=== PATIENT | male | born 1965 | race Caucasian/White ===

== ENCOUNTER 2016-03-18 16:02 | Outpatient (CLI) ==
[2015-10-14 20:15] VITALS: BMI 48.2
[2016-03-18 16:35] LABS: BASOPHILS % (AUTO) 0.5 % (0.0-3.0); EOSINOPHILS # (AUTO) 0.1 K/ul (0.0-0.7); EOSINOPHILS % (AUTO) 3.4 % (0.0-7.0); IMMATURE GRANULOCYTE % (AUTO) 0.5 % (0.0-5.0); LYMPHOCYTES # (AUTO) 0.6 K/uL (0.60-3.4); LYMPHOCYTES % (AUTO) 16.3 (10.0-50.0); MEAN CORPUSCULAR HEMOGLOBIN 33.5 pg (27.0-31.0); MEAN CORPUSCULAR HGB CONC 32.2 (31.8-35.4); MEAN CORPUSCULAR VOLUME 104.1 fl (80.0-94.0); MONOCYTES # (AUTO) 0.5 K/uL (0.4-2.0); MONOCYTES % (AUTO) 12.2 (0-10); NEUTROPHILS # (AUTO) 2.6 K/ul (2.0-6.9); NEUTROPHILS % (AUTO) 67.1; PLATELET COUNT 77 10^3/uL (140-440); WHITE BLOOD COUNT 3.86 K/ul (4.2-10.2)
[2016-03-18 16:39] LABS: HEMATOCRIT 17.7 % (42.0-52.0); HEMOGLOBIN 5.7 g/dl (14.0-18.0)
[2016-03-18 16:42] LABS: ALBUMIN 3.1 g/dL (3.4-5.0); ALBUMIN/GLOBULIN RATIO 0.74; ANION GAP 11.4; BILIRUBIN,TOTAL 2.29 mg/dL (0.00-1.20); BUN/CREATININE RATIO 9.34; CALCIUM 8.7 mg/dL (8.2-10.2); CREATININE 3.21 mg/dL (0.60-1.10); POTASSIUM 3.4 mmol/L (3.5-5.1); TOTAL PROTEIN 7.3 g/dL (6.4-8.2)
== END 2016-03-18 16:03 | disposition home or self-care (01) ==
LOC: LAB 16:02
PROVIDERS: ATTEND Internal Medicine
DX: D64.9 Anemia, unspecified (principal); N17.9 Acute kidney failure, unspecified
CPT/HCPCS: 36415; 80053; 85025

== ENCOUNTER 2016-03-28 14:52 | Outpatient (CLI) ==
[2015-10-14 20:15] VITALS: BMI 48.2
[2016-03-28 15:12] LABS: BASOPHILS % (AUTO) 0.3 % (0.0-3.0); EOSINOPHILS # (AUTO) 0.1 K/ul (0.0-0.7); EOSINOPHILS % (AUTO) 2.3 % (0.0-7.0); HEMOGLOBIN 7.4 g/dl (14.0-18.0); IMMATURE GRANULOCYTE % (AUTO) 0.5 % (0.0-5.0); IMMATURE RETIC FRACTION 18.3; LYMPHOCYTES % (AUTO) 17.1 (10.0-50.0); MEAN CORPUSCULAR HGB CONC 30.8 (31.8-35.4); MEAN CORPUSCULAR VOLUME 103.9 fl (80.0-94.0); MONOCYTES # (AUTO) 0.4 K/uL (0.4-2.0); MONOCYTES % (AUTO) 7.2 (0-10); NEUTROPHILS # (AUTO) 4.2 K/ul (2.0-6.9); NEUTROPHILS % (AUTO) 72.6; PLATELET COUNT 79 10^3/uL (140-440); RED BLOOD COUNT 2.31 10^6/ul (4.70-6.10); RETICULOCYTE % 5.26 %; WHITE BLOOD COUNT 5.73 K/ul (4.2-10.2)
[2016-03-28 16:22] LABS: FERRITIN 119.69 ng/mL (21.81-274.66); FOLATE 6.9 ng/mL (3.1-20.5)
== END 2016-03-28 14:53 | disposition home or self-care (01) ==
LOC: LAB 14:52
PROVIDERS: ATTEND Emergency Medicine
DX: N18.9 Chronic kidney disease, unspecified (principal); D63.1 Anemia in chronic kidney disease
CPT/HCPCS: 36415; 82607; 82728; 82746; 83540; 83550; 84466; 85025; 85045

== ENCOUNTER 2016-04-07 12:42 | Outpatient (CLI) ==
[2015-10-14 20:15] VITALS: BMI 48.2
[2016-04-07 13:08] LABS: BASOPHILS % (AUTO) 0.5 % (0.0-3.0); EOSINOPHILS # (AUTO) 0.2 K/ul (0.0-0.7); HEMOGLOBIN 7.7 g/dl (14.0-18.0); IMMATURE GRANULOCYTE % (AUTO) 0.2 % (0.0-5.0); LYMPHOCYTES # (AUTO) 1.3 K/uL (0.60-3.4); LYMPHOCYTES % (AUTO) 23.1 (10.0-50.0); MEAN CORPUSCULAR HGB CONC 32.1 (31.8-35.4); MONOCYTES # (AUTO) 0.4 K/uL (0.4-2.0); MONOCYTES % (AUTO) 6.4 (0-10); NEUTROPHILS # (AUTO) 3.8 K/ul (2.0-6.9); NEUTROPHILS % (AUTO) 66.8; PLATELET COUNT 72 10^3/uL (140-440); RED BLOOD COUNT 2.33 10^6/ul (4.70-6.10); WHITE BLOOD COUNT 5.66 K/ul (4.2-10.2)
[2016-04-07 13:36] LABS: ALBUMIN 3.1 g/dL (3.4-5.0); ALBUMIN/GLOBULIN RATIO 0.89; ANION GAP 10.4; BILIRUBIN,TOTAL 2.2 mg/dL (0.00-1.20); BUN/CREATININE RATIO 19.62; CREATININE 1.07 mg/dL (0.60-1.10); POTASSIUM 3.4 mmol/L (3.5-5.1); TOTAL PROTEIN 6.6 g/dL (6.4-8.2)
== END 2016-04-07 12:43 | disposition home or self-care (01) ==
LOC: LAB 12:42
PROVIDERS: ATTEND Emergency Medicine
DX: D64.9 Anemia, unspecified (principal); N19 Unspecified kidney failure
CPT/HCPCS: 36415; 80053; 85025

== ENCOUNTER 2016-04-08 15:08 | Outpatient (CLI) ==
[2015-10-14 20:15] VITALS: BMI 48.2
[2016-04-08 15:39] LABS: ANION GAP 11.4; BUN/CREATININE RATIO 18.58; CALCIUM 8.9 mg/dL (8.2-10.2); CREATININE 1.13 mg/dL (0.60-1.10); POTASSIUM 3.4 mmol/L (3.5-5.1)
== END 2016-04-08 15:09 | disposition home or self-care (01) ==
LOC: LAB 15:08
PROVIDERS: ATTEND Internal Medicine Nephrology
DX: N18.4 Chronic kidney disease, stage 4 (severe) (principal)
CPT/HCPCS: 36415; 80048

== ENCOUNTER 2016-04-10 15:41 | Outpatient (CLI) ==
[2015-10-14 20:15] VITALS: BMI 48.2
[2016-04-12 08:18] LABS: REF CREATININE 1.14 mg/dL (0.76-1.27); URINE TOTAL PROTEIN 24 HR 6.7 mg/dL (Not Estab.)
[2016-04-12 08:27] LABS: 24 HR PROTEIN CALCULATED 160.8 mg/24 hr (30.0-150.0)
== END 2016-04-10 15:42 | disposition home or self-care (01) ==
LOC: LAB 15:41
PROVIDERS: ATTEND Internal Medicine Nephrology
DX: N18.4 Chronic kidney disease, stage 4 (severe) (principal)
CPT/HCPCS: 81050; 82575; 84156

== ENCOUNTER 2016-05-01 12:20 | Outpatient (CLI) ==
[2015-10-14 20:15] VITALS: BMI 48.2
[2016-05-01 12:55] LABS: BASOPHILS % (AUTO) 0.3 % (0.0-3.0); EOSINOPHILS # (AUTO) 0.1 K/ul (0.0-0.7); EOSINOPHILS % (AUTO) 2.6 % (0.0-7.0); HEMOGLOBIN 6.4 g/dl (14.0-18.0); LYMPHOCYTES # (AUTO) 0.8 K/uL (0.60-3.4); LYMPHOCYTES % (AUTO) 26.5 (10.0-50.0); MEAN CORPUSCULAR HEMOGLOBIN 29.6 pg (27.0-31.0); MEAN CORPUSCULAR HGB CONC 31.4 (31.8-35.4); MEAN CORPUSCULAR VOLUME 94.4 fl (80.0-94.0); MONOCYTES # (AUTO) 0.2 K/uL (0.4-2.0); MONOCYTES % (AUTO) 7.6 (0-10); NEUTROPHILS # (AUTO) 1.9 K/ul (2.0-6.9); PLATELET COUNT 83 10^3/uL (140-440); RED BLOOD COUNT 2.16 10^6/ul (4.70-6.10); WHITE BLOOD COUNT 3.02 K/ul (4.2-10.2)
[2016-05-01 13:05] LABS: ANION GAP 8.7; BILIRUBIN,TOTAL 1.51 mg/dL (0.00-1.20); BUN/CREATININE RATIO 9.09; CALCIUM 8.3 mg/dL (8.2-10.2); CREATININE 0.88 mg/dL (0.60-1.10); POTASSIUM 3.7 mmol/L (3.5-5.1)
[2016-05-01 13:11] LABS: HEMATOCRIT 20.4 % (42.0-52.0)
== END 2016-05-01 12:21 | disposition home or self-care (01) ==
LOC: LAB 12:20
PROVIDERS: ATTEND Emergency Medicine
DX: D64.9 Anemia, unspecified (principal); K74.60 Unspecified cirrhosis of liver; R60.0 Localized edema; E66.9 Obesity, unspecified
CPT/HCPCS: 36415; 80053; 85025

== ENCOUNTER 2016-05-07 14:09 | Outpatient (CLI) ==
[2015-10-14 20:15] VITALS: BMI 48.2
[2016-05-07 14:42] LABS: BASOPHILS % (AUTO) 0.5 % (0.0-3.0); EOSINOPHILS # (AUTO) 0.1 K/ul (0.0-0.7); EOSINOPHILS % (AUTO) 2.7 % (0.0-7.0); HEMATOCRIT 24.7 % (42.0-52.0); HEMOGLOBIN 7.7 g/dl (14.0-18.0); IMMATURE GRANULOCYTE % (AUTO) 0.3 % (0.0-5.0); LYMPHOCYTES # (AUTO) 0.9 K/uL (0.60-3.4); LYMPHOCYTES % (AUTO) 23.9 (10.0-50.0); MEAN CORPUSCULAR HEMOGLOBIN 28.4 pg (27.0-31.0); MEAN CORPUSCULAR HGB CONC 31.2 (31.8-35.4); MEAN CORPUSCULAR VOLUME 91.1 fl (80.0-94.0); MONOCYTES # (AUTO) 0.4 K/uL (0.4-2.0); MONOCYTES % (AUTO) 10.5 (0-10); NEUTROPHILS # (AUTO) 2.3 K/ul (2.0-6.9); NEUTROPHILS % (AUTO) 62.1; PLATELET COUNT 102 10^3/uL (140-440); RED BLOOD COUNT 2.71 10^6/ul (4.70-6.10); WHITE BLOOD COUNT 3.73 K/ul (4.2-10.2)
[2016-05-07 14:58] LABS: ALBUMIN 3.2 g/dL (3.4-5.0); ALBUMIN/GLOBULIN RATIO 1.03; ANION GAP 8.1; BILIRUBIN,TOTAL 2.59 mg/dL (0.00-1.20); BUN/CREATININE RATIO 8.51; CALCIUM 8.9 mg/dL (8.2-10.2); CREATININE 0.94 mg/dL (0.60-1.10); POTASSIUM 3.1 mmol/L (3.5-5.1); TOTAL PROTEIN 6.3 g/dL (6.4-8.2)
== END 2016-05-07 14:10 | disposition home or self-care (01) ==
LOC: LAB 14:09
PROVIDERS: ATTEND Emergency Medicine
DX: D64.9 Anemia, unspecified (principal); K74.60 Unspecified cirrhosis of liver
CPT/HCPCS: 36415; 80053; 85025

== ENCOUNTER 2016-05-16 15:04 | Outpatient (CLI) ==
[2015-10-14 20:15] VITALS: BMI 48.2
[2016-05-16 15:26] LABS: BASOPHILS % (AUTO) 0.6 % (0.0-3.0); EOSINOPHILS # (AUTO) 0.2 K/ul (0.0-0.7); EOSINOPHILS % (AUTO) 4.7 % (0.0-7.0); HEMATOCRIT 27.1 % (42.0-52.0); HEMOGLOBIN 8.3 g/dl (14.0-18.0); LYMPHOCYTES # (AUTO) 0.9 K/uL (0.60-3.4); LYMPHOCYTES % (AUTO) 26.1 (10.0-50.0); MEAN CORPUSCULAR HEMOGLOBIN 27.4 pg (27.0-31.0); MEAN CORPUSCULAR HGB CONC 30.6 (31.8-35.4); MEAN CORPUSCULAR VOLUME 89.4 fl (80.0-94.0); MONOCYTES # (AUTO) 0.3 K/uL (0.4-2.0); MONOCYTES % (AUTO) 10.1 (0-10); NEUTROPHILS % (AUTO) 58.5; PLATELET COUNT 102 10^3/uL (140-440); RED BLOOD COUNT 3.03 10^6/ul (4.70-6.10); WHITE BLOOD COUNT 3.37 K/ul (4.2-10.2)
[2016-05-16 15:56] LABS: ALBUMIN 3.1 g/dL (3.4-5.0); ANION GAP 10.4; BILIRUBIN,TOTAL 2.49 mg/dL (0.00-1.20); BUN/CREATININE RATIO 8.04; CALCIUM 8.7 mg/dL (8.2-10.2); CREATININE 0.87 mg/dL (0.60-1.10); POTASSIUM 3.4 mmol/L (3.5-5.1); TOTAL PROTEIN 6.2 g/dL (6.4-8.2)
== END 2016-05-16 15:05 | disposition home or self-care (01) ==
LOC: LAB 15:04
PROVIDERS: ATTEND Emergency Medicine
DX: R60.0 Localized edema (principal); D64.9 Anemia, unspecified; E66.9 Obesity, unspecified; R17 Unspecified jaundice; K74.60 Unspecified cirrhosis of liver
CPT/HCPCS: 36415; 80053; 85025

== ENCOUNTER 2016-05-22 15:01 | Outpatient (CLI) ==
[2015-10-14 20:15] VITALS: BMI 48.2
[2016-05-22 15:26] LABS: BASOPHILS % (AUTO) 0.6 % (0.0-3.0); EOSINOPHILS # (AUTO) 0.2 K/ul (0.0-0.7); EOSINOPHILS % (AUTO) 4.7 % (0.0-7.0); HEMATOCRIT 25.8 % (42.0-52.0); IMMATURE GRANULOCYTE % (AUTO) 0.3 % (0.0-5.0); LYMPHOCYTES # (AUTO) 0.8 K/uL (0.60-3.4); LYMPHOCYTES % (AUTO) 24.1 (10.0-50.0); MEAN CORPUSCULAR HEMOGLOBIN 26.6 pg (27.0-31.0); MEAN CORPUSCULAR VOLUME 85.7 fl (80.0-94.0); MONOCYTES # (AUTO) 0.3 K/uL (0.4-2.0); MONOCYTES % (AUTO) 7.8 (0-10); NEUTROPHILS % (AUTO) 62.5; PLATELET COUNT 107 10^3/uL (140-440); RED BLOOD COUNT 3.01 10^6/ul (4.70-6.10)
[2016-05-22 15:50] LABS: ALBUMIN 3.1 g/dL (3.4-5.0); ALBUMIN/GLOBULIN RATIO 1.03; ANION GAP 7.2; BILIRUBIN,TOTAL 3.48 mg/dL (0.00-1.20); BUN/CREATININE RATIO 8.98; CALCIUM 8.7 mg/dL (8.2-10.2); CREATININE 0.89 mg/dL (0.60-1.10); POTASSIUM 3.2 mmol/L (3.5-5.1); TOTAL PROTEIN 6.1 g/dL (6.4-8.2)
== END 2016-05-22 15:02 | disposition home or self-care (01) ==
LOC: LAB 15:01
PROVIDERS: ATTEND Emergency Medicine
DX: K74.60 Unspecified cirrhosis of liver (principal); D64.9 Anemia, unspecified
CPT/HCPCS: 36415; 80053; 82140; 85025

== ENCOUNTER 2016-05-29 13:00 | Outpatient (CLI) ==
[2015-10-14 20:15] VITALS: BMI 48.2
[2016-05-29 13:34] LABS: BASOPHILS % (AUTO) 0.4 % (0.0-3.0); EOSINOPHILS # (AUTO) 0.2 K/ul (0.0-0.7); EOSINOPHILS % (AUTO) 6.5 % (0.0-7.0); HEMATOCRIT 22.3 % (42.0-52.0); HEMOGLOBIN 6.7 g/dl (14.0-18.0); LYMPHOCYTES # (AUTO) 0.8 K/uL (0.60-3.4); LYMPHOCYTES % (AUTO) 33.2 (10.0-50.0); MEAN CORPUSCULAR HEMOGLOBIN 25.9 pg (27.0-31.0); MEAN CORPUSCULAR VOLUME 86.1 fl (80.0-94.0); MONOCYTES # (AUTO) 0.2 K/uL (0.4-2.0); MONOCYTES % (AUTO) 9.7 (0-10); NEUTROPHILS # (AUTO) 1.2 K/ul (2.0-6.9); NEUTROPHILS % (AUTO) 50.2; PLATELET COUNT 83 10^3/uL (140-440); PROTHROMBIN TIME 12.3 SEC (9.3-11.0); RED BLOOD COUNT 2.59 10^6/ul (4.70-6.10); WHITE BLOOD COUNT 2.47 K/ul (4.2-10.2)
== END 2016-05-29 13:01 | disposition home or self-care (01) ==
LOC: LAB 13:00
PROVIDERS: ATTEND Emergency Medicine
DX: D64.9 Anemia, unspecified (principal); K74.60 Unspecified cirrhosis of liver
CPT/HCPCS: 36415; 82140; 85025; 85610

== ENCOUNTER 2016-05-29 14:39 | Outpatient (CLI) ==
[2015-10-14 20:15] VITALS: BMI 48.2
[2016-05-29] MEDS ORDERED: LASIX IVP STA (17:34)
[2016-05-30] MEDS ORDERED: LASIX ONE (00:29)
[2016-05-30 00:44] LABS: BASOPHILS % (AUTO) 0.7 % (0.0-3.0); EOSINOPHILS # (AUTO) 0.2 K/ul (0.0-0.7); EOSINOPHILS % (AUTO) 6.7 % (0.0-7.0); HEMATOCRIT 22.9 % (42.0-52.0); HEMOGLOBIN 7.2 g/dl (14.0-18.0); LYMPHOCYTES % (AUTO) 37.9 (10.0-50.0); MEAN CORPUSCULAR HEMOGLOBIN 26.8 pg (27.0-31.0); MEAN CORPUSCULAR HGB CONC 31.4 (31.8-35.4); MEAN CORPUSCULAR VOLUME 85.1 fl (80.0-94.0); MONOCYTES # (AUTO) 0.3 K/uL (0.4-2.0); NEUTROPHILS # (AUTO) 1.2 K/ul (2.0-6.9); NEUTROPHILS % (AUTO) 44.7; PLATELET COUNT 65 10^3/uL (140-440); RED BLOOD COUNT 2.69 10^6/ul (4.70-6.10); WHITE BLOOD COUNT 2.69 K/ul (4.2-10.2)
[2016-05-30 01:38] VITALS: BP 120/69; TEMP 98.8
== END 2016-05-30 00:40 | disposition home or self-care (01) ==
LOC: LAB 14:39 → OUTPT 14:40
PROVIDERS: ATTEND Emergency Medicine
DX: D64.9 Anemia, unspecified (principal); K74.60 Unspecified cirrhosis of liver
CPT/HCPCS: 36415; 36430; 82140; 85025; 85610; 86850; 86900; 86922; 96375

== ENCOUNTER 2016-06-09 13:25 | Outpatient (CLI) ==
[2015-10-14 20:15] VITALS: BMI 48.2
[2016-06-09 13:43] LABS: BASOPHILS % (AUTO) 0.3 % (0.0-3.0); EOSINOPHILS # (AUTO) 0.1 K/ul (0.0-0.7); EOSINOPHILS % (AUTO) 3.1 % (0.0-7.0); HEMATOCRIT 23.6 % (42.0-52.0); HEMOGLOBIN 7.1 g/dl (14.0-18.0); IMMATURE GRANULOCYTE % (AUTO) 0.5 % (0.0-5.0); LYMPHOCYTES # (AUTO) 0.8 K/uL (0.60-3.4); LYMPHOCYTES % (AUTO) 21.4 (10.0-50.0); MEAN CORPUSCULAR HEMOGLOBIN 25.9 pg (27.0-31.0); MEAN CORPUSCULAR HGB CONC 30.1 (31.8-35.4); MEAN CORPUSCULAR VOLUME 86.1 fl (80.0-94.0); MONOCYTES # (AUTO) 0.3 K/uL (0.4-2.0); MONOCYTES % (AUTO) 8.8 (0-10); NEUTROPHILS # (AUTO) 2.6 K/ul (2.0-6.9); NEUTROPHILS % (AUTO) 65.9; PLATELET COUNT 103 10^3/uL (140-440); RED BLOOD COUNT 2.74 10^6/ul (4.70-6.10); WHITE BLOOD COUNT 3.87 K/ul (4.2-10.2)
[2016-06-09 14:05] LABS: ALBUMIN 3.1 g/dL (3.4-5.0); ALBUMIN/GLOBULIN RATIO 1.07; ANION GAP 8.9; BUN/CREATININE RATIO 13.18; CALCIUM 8.5 mg/dL (8.2-10.2); CREATININE 0.91 mg/dL (0.60-1.10); POTASSIUM 3.9 mmol/L (3.5-5.1)
== END 2016-06-09 13:26 | disposition home or self-care (01) ==
LOC: LAB 13:25
PROVIDERS: ATTEND Emergency Medicine
DX: D64.9 Anemia, unspecified (principal); K74.60 Unspecified cirrhosis of liver; E72.20 Disorder of urea cycle metabolism, unspecified
CPT/HCPCS: 36415; 80053; 82140; 85025

== ENCOUNTER 2016-06-12 14:42 | Outpatient (CLI) ==
[2015-10-14 20:15] VITALS: BMI 48.2
[2016-06-12 15:21] LABS: BASOPHILS % (AUTO) 0.3 % (0.0-3.0); EOSINOPHILS # (AUTO) 0.1 K/ul (0.0-0.7); EOSINOPHILS % (AUTO) 4.1 % (0.0-7.0); HEMOGLOBIN 7.1 g/dl (14.0-18.0); IMMATURE GRANULOCYTE % (AUTO) 0.3 % (0.0-5.0); LYMPHOCYTES # (AUTO) 0.8 K/uL (0.60-3.4); LYMPHOCYTES % (AUTO) 24.3 (10.0-50.0); MEAN CORPUSCULAR HGB CONC 29.6 (31.8-35.4); MEAN CORPUSCULAR VOLUME 84.5 fl (80.0-94.0); MONOCYTES # (AUTO) 0.4 K/uL (0.4-2.0); MONOCYTES % (AUTO) 10.7 (0-10); NEUTROPHILS % (AUTO) 60.3; PLATELET COUNT 121 10^3/uL (140-440); RED BLOOD COUNT 2.84 10^6/ul (4.70-6.10); WHITE BLOOD COUNT 3.38 K/ul (4.2-10.2)
[2016-06-12 15:33] LABS: ALBUMIN 3.2 g/dL (3.4-5.0); ALBUMIN/GLOBULIN RATIO 1.07; ANION GAP 7.5; BILIRUBIN,TOTAL 2.53 mg/dL (0.00-1.20); BUN/CREATININE RATIO 11.23; CALCIUM 8.6 mg/dL (8.2-10.2); CREATININE 0.89 mg/dL (0.60-1.10); POTASSIUM 3.5 mmol/L (3.5-5.1); TOTAL PROTEIN 6.2 g/dL (6.4-8.2)
== END 2016-06-12 14:43 | disposition home or self-care (01) ==
LOC: LAB 14:42
PROVIDERS: ATTEND Emergency Medicine
DX: D64.9 Anemia, unspecified (principal); G93.40 Encephalopathy, unspecified
CPT/HCPCS: 36415; 80053; 82140; 85025

== ENCOUNTER 2016-06-18 12:09 | Outpatient (CLI) ==
[2015-10-14 20:15] VITALS: BMI 48.2
[2016-06-18 12:29] LABS: BASOPHILS % (AUTO) 0.4 % (0.0-3.0); EOSINOPHILS # (AUTO) 0.2 K/ul (0.0-0.7); EOSINOPHILS % (AUTO) 6.6 % (0.0-7.0); HEMATOCRIT 24.9 % (42.0-52.0); HEMOGLOBIN 7.3 g/dl (14.0-18.0); IMMATURE GRANULOCYTE % (AUTO) 0.4 % (0.0-5.0); LYMPHOCYTES % (AUTO) 35.2 (10.0-50.0); MEAN CORPUSCULAR HEMOGLOBIN 24.5 pg (27.0-31.0); MEAN CORPUSCULAR HGB CONC 29.3 (31.8-35.4); MEAN CORPUSCULAR VOLUME 83.6 fl (80.0-94.0); MONOCYTES # (AUTO) 0.3 K/uL (0.4-2.0); MONOCYTES % (AUTO) 9.5 (0-10); NEUTROPHILS # (AUTO) 1.3 K/ul (2.0-6.9); NEUTROPHILS % (AUTO) 47.9; PLATELET COUNT 96 10^3/uL (140-440); RED BLOOD COUNT 2.98 10^6/ul (4.70-6.10); WHITE BLOOD COUNT 2.73 K/ul (4.2-10.2)
== END 2016-06-18 12:10 | disposition home or self-care (01) ==
LOC: LAB 12:09
PROVIDERS: ATTEND Emergency Medicine
DX: D64.9 Anemia, unspecified (principal); K74.60 Unspecified cirrhosis of liver; G93.40 Encephalopathy, unspecified
CPT/HCPCS: 36415; 82140; 85025

== ENCOUNTER 2016-07-22 13:20 | Outpatient (CLI) ==
[2015-10-14 20:15] VITALS: BMI 48.2
[2016-07-22 13:42] LABS: BASOPHILS % (AUTO) 0.7 % (0.0-3.0); EOSINOPHILS # (AUTO) 0.1 K/ul (0.0-0.7); EOSINOPHILS % (AUTO) 4.5 % (0.0-7.0); HEMATOCRIT 27.6 % (42.0-52.0); HEMOGLOBIN 8.4 g/dl (14.0-18.0); IMMATURE GRANULOCYTE % (AUTO) 0.3 % (0.0-5.0); LYMPHOCYTES # (AUTO) 0.7 K/uL (0.60-3.4); LYMPHOCYTES % (AUTO) 25.8 (10.0-50.0); MEAN CORPUSCULAR HEMOGLOBIN 26.3 pg (27.0-31.0); MEAN CORPUSCULAR HGB CONC 30.4 (31.8-35.4); MEAN CORPUSCULAR VOLUME 86.3 fl (80.0-94.0); MONOCYTES # (AUTO) 0.3 K/uL (0.4-2.0); MONOCYTES % (AUTO) 9.1 (0-10); NEUTROPHILS # (AUTO) 1.7 K/ul (2.0-6.9); NEUTROPHILS % (AUTO) 59.6; PLATELET COUNT 95 10^3/uL (140-440); WHITE BLOOD COUNT 2.87 K/ul (4.2-10.2)
[2016-07-22 14:04] LABS: ALBUMIN/GLOBULIN RATIO 1.03; ANION GAP 9.4; BILIRUBIN,TOTAL 2.47 mg/dL (0.00-1.20); BUN/CREATININE RATIO 10.67; CALCIUM 8.3 mg/dL (8.2-10.2); CREATININE 1.03 mg/dL (0.60-1.10); POTASSIUM 3.4 mmol/L (3.5-5.1); TOTAL PROTEIN 5.9 g/dL (6.4-8.2)
== END 2016-07-22 13:21 | disposition home or self-care (01) ==
LOC: LAB 13:20
PROVIDERS: ATTEND Emergency Medicine
DX: D64.9 Anemia, unspecified (principal); K74.60 Unspecified cirrhosis of liver; G93.40 Encephalopathy, unspecified
CPT/HCPCS: 36415; 80053; 82140; 85025

== ENCOUNTER 2016-08-01 10:41 | Outpatient (CLI) ==
[2015-10-14 20:15] VITALS: BMI 48.2
[2016-08-01 11:01] LABS: BASOPHILS % (AUTO) 0.6 % (0.0-3.0); EOSINOPHILS # (AUTO) 0.2 K/ul (0.0-0.7); EOSINOPHILS % (AUTO) 5.4 % (0.0-7.0); HEMATOCRIT 33.4 % (42.0-52.0); LYMPHOCYTES % (AUTO) 28.6 (10.0-50.0); MEAN CORPUSCULAR HEMOGLOBIN 26.2 pg (27.0-31.0); MEAN CORPUSCULAR HGB CONC 29.9 (31.8-35.4); MEAN CORPUSCULAR VOLUME 87.4 fl (80.0-94.0); MONOCYTES # (AUTO) 0.3 K/uL (0.4-2.0); MONOCYTES % (AUTO) 10.1 (0-10); NEUTROPHILS # (AUTO) 1.9 K/ul (2.0-6.9); NEUTROPHILS % (AUTO) 55.3; PLATELET COUNT 129 10^3/uL (140-440); RED BLOOD COUNT 3.82 10^6/ul (4.70-6.10); WHITE BLOOD COUNT 3.36 K/ul (4.2-10.2)
[2016-08-01 11:07] LABS: ANISOCYTOSIS 2+ (NOT PRESENT)
[2016-08-01 11:18] LABS: ALBUMIN 3.4 g/dL (3.4-5.0); ALBUMIN/GLOBULIN RATIO 1.06; BILIRUBIN,TOTAL 2.43 mg/dL (0.00-1.20); BUN/CREATININE RATIO 13.68; CALCIUM 8.9 mg/dL (8.2-10.2); CREATININE 0.95 mg/dL (0.60-1.10); TOTAL PROTEIN 6.6 g/dL (6.4-8.2)
== END 2016-08-01 10:42 | disposition home or self-care (01) ==
LOC: LAB 10:41
PROVIDERS: ATTEND Emergency Medicine
DX: D64.9 Anemia, unspecified (principal); K74.60 Unspecified cirrhosis of liver; G93.40 Encephalopathy, unspecified
CPT/HCPCS: 36415; 80053; 82140; 85008; 85025

== ENCOUNTER 2016-08-14 15:35 | Outpatient (CLI) ==
[2015-10-14 20:15] VITALS: BMI 48.2
[2016-08-14 16:17] LABS: BASOPHILS % (AUTO) 0.7 % (0.0-3.0); EOSINOPHILS # (AUTO) 0.1 K/ul (0.0-0.7); EOSINOPHILS % (AUTO) 3.7 % (0.0-7.0); HEMATOCRIT 32.7 % (42.0-52.0); LYMPHOCYTES # (AUTO) 0.8 K/uL (0.60-3.4); MEAN CORPUSCULAR HEMOGLOBIN 27.4 pg (27.0-31.0); MEAN CORPUSCULAR HGB CONC 30.6 (31.8-35.4); MEAN CORPUSCULAR VOLUME 89.6 fl (80.0-94.0); MONOCYTES # (AUTO) 0.2 K/uL (0.4-2.0); MONOCYTES % (AUTO) 6.8 (0-10); NEUTROPHILS # (AUTO) 1.9 K/ul (2.0-6.9); NEUTROPHILS % (AUTO) 62.8; PLATELET COUNT 107 10^3/uL (140-440); RED BLOOD COUNT 3.65 10^6/ul (4.70-6.10); WHITE BLOOD COUNT 2.96 K/ul (4.2-10.2)
[2016-08-14 16:21] LABS: ALBUMIN 3.2 g/dL (3.4-5.0); ALBUMIN/GLOBULIN RATIO 1.14; ANION GAP 8.5; BILIRUBIN,TOTAL 2.06 mg/dL (0.00-1.20); BUN/CREATININE RATIO 12.03; CALCIUM 8.8 mg/dL (8.2-10.2); CREATININE 1.08 mg/dL (0.60-1.10); POTASSIUM 3.5 mmol/L (3.5-5.1)
== END 2016-08-14 15:36 | disposition home or self-care (01) ==
LOC: LAB 15:35
PROVIDERS: ATTEND Emergency Medicine
DX: D64.9 Anemia, unspecified (principal); K74.60 Unspecified cirrhosis of liver; G93.40 Encephalopathy, unspecified
CPT/HCPCS: 36415; 80053; 82140; 85025

== ENCOUNTER 2016-09-12 09:22 | Outpatient (CLI) ==
[2015-10-14 20:15] VITALS: BMI 48.2
[2016-09-12 09:54] LABS: BASOPHILS % (AUTO) 0.4 % (0.0-3.0); EOSINOPHILS # (AUTO) 0.1 K/ul (0.0-0.7); EOSINOPHILS % (AUTO) 5.4 % (0.0-7.0); HEMATOCRIT 30.1 % (42.0-52.0); HEMOGLOBIN 9.3 g/dl (14.0-18.0); IMMATURE GRANULOCYTE % (AUTO) 0.4 % (0.0-5.0); LYMPHOCYTES # (AUTO) 0.8 K/uL (0.60-3.4); LYMPHOCYTES % (AUTO) 30.7 (10.0-50.0); MEAN CORPUSCULAR HGB CONC 30.9 (31.8-35.4); MEAN CORPUSCULAR VOLUME 93.8 fl (80.0-94.0); MONOCYTES # (AUTO) 0.3 K/uL (0.4-2.0); MONOCYTES % (AUTO) 10.5 (0-10); NEUTROPHILS # (AUTO) 1.4 K/ul (2.0-6.9); NEUTROPHILS % (AUTO) 52.6; PLATELET COUNT 70 10^3/uL (140-440); RED BLOOD COUNT 3.21 10^6/ul (4.70-6.10); WHITE BLOOD COUNT 2.57 K/ul (4.2-10.2)
[2016-09-12 10:11] LABS: PROTHROMBIN TIME 11.8 SEC (9.3-11.0)
[2016-09-12 10:13] LABS: ALBUMIN/GLOBULIN RATIO 1.15; ANION GAP 9.8; BILIRUBIN,TOTAL 1.96 mg/dL (0.00-1.20); BUN/CREATININE RATIO 14.81; CALCIUM 8.4 mg/dL (8.2-10.2); CREATININE 0.81 mg/dL (0.60-1.10); POTASSIUM 3.8 mmol/L (3.5-5.1); TOTAL PROTEIN 5.6 g/dL (6.4-8.2)
== END 2016-09-12 09:23 | disposition home or self-care (01) ==
LOC: LAB 09:22
PROVIDERS: ATTEND Emergency Medicine
DX: D64.9 Anemia, unspecified (principal); K74.60 Unspecified cirrhosis of liver
CPT/HCPCS: 36415; 80053; 82140; 85025; 85610

== ENCOUNTER 2016-09-19 14:23 | Outpatient (CLI) ==
[2015-10-14 20:15] VITALS: BMI 48.2
[2016-09-19 14:34] LABS: BASOPHILS % (AUTO) 0.8 % (0.0-3.0); EOSINOPHILS # (AUTO) 0.1 K/ul (0.0-0.7); EOSINOPHILS % (AUTO) 4.4 % (0.0-7.0); HEMATOCRIT 30.6 % (42.0-52.0); HEMOGLOBIN 9.6 g/dl (14.0-18.0); LYMPHOCYTES # (AUTO) 0.8 K/uL (0.60-3.4); LYMPHOCYTES % (AUTO) 33.1 (10.0-50.0); MEAN CORPUSCULAR HEMOGLOBIN 29.3 pg (27.0-31.0); MEAN CORPUSCULAR HGB CONC 31.4 (31.8-35.4); MEAN CORPUSCULAR VOLUME 93.3 fl (80.0-94.0); MONOCYTES # (AUTO) 0.3 K/uL (0.4-2.0); MONOCYTES % (AUTO) 12.1 (0-10); NEUTROPHILS # (AUTO) 1.2 K/ul (2.0-6.9); NEUTROPHILS % (AUTO) 49.6; PLATELET COUNT 86 10^3/uL (140-440); RED BLOOD COUNT 3.28 10^6/ul (4.70-6.10); WHITE BLOOD COUNT 2.48 K/ul (4.2-10.2)
[2016-09-19 15:30] LABS: ALBUMIN 2.9 g/dL (3.4-5.0); ALBUMIN/GLOBULIN RATIO 1.12; ANION GAP 9.7; BILIRUBIN,TOTAL 2.05 mg/dL (0.00-1.20); BUN/CREATININE RATIO 11.76; CALCIUM 8.3 mg/dL (8.2-10.2); CREATININE 1.02 mg/dL (0.60-1.10); POTASSIUM 3.7 mmol/L (3.5-5.1); TOTAL PROTEIN 5.5 g/dL (6.4-8.2)
== END 2016-09-19 14:24 | disposition home or self-care (01) ==
LOC: LAB 14:23
PROVIDERS: ATTEND Emergency Medicine
DX: G93.40 Encephalopathy, unspecified (principal); D50.0 Iron deficiency anemia secondary to blood loss (chronic); K74.69 Other cirrhosis of liver
CPT/HCPCS: 36415; 80053; 82140; 85025

== ENCOUNTER 2016-12-17 16:19 | Outpatient (CLI) ==
[2015-10-14 20:15] VITALS: BMI 48.2
[2016-12-17 16:45] LABS: BASOPHILS % (AUTO) 0.5 % (0.0-3.0); EOSINOPHILS # (AUTO) 0.1 K/ul (0.0-0.7); EOSINOPHILS % (AUTO) 3.6 % (0.0-7.0); HEMATOCRIT 37.6 % (42.0-52.0); IMMATURE GRANULOCYTE % (AUTO) 0.3 % (0.0-5.0); LYMPHOCYTES # (AUTO) 0.9 K/uL (0.60-3.4); LYMPHOCYTES % (AUTO) 23.3 (10.0-50.0); MEAN CORPUSCULAR HEMOGLOBIN 31.9 pg (27.0-31.0); MEAN CORPUSCULAR HGB CONC 34.6 (31.8-35.4); MEAN CORPUSCULAR VOLUME 92.4 fl (80.0-94.0); MONOCYTES # (AUTO) 0.4 K/uL (0.4-2.0); MONOCYTES % (AUTO) 9.3 (0-10); NEUTROPHILS # (AUTO) 2.4 K/ul (2.0-6.9); PLATELET COUNT 78 10^3/uL (140-440); RED BLOOD COUNT 4.07 10^6/ul (4.70-6.10); WHITE BLOOD COUNT 3.86 K/ul (4.2-10.2)
[2016-12-17 17:08] LABS: ANION GAP 9.3; BILIRUBIN,TOTAL 2.89 mg/dL (0.00-1.20); BUN/CREATININE RATIO 12.37; CALCIUM 9.1 mg/dL (8.2-10.2); CREATININE 0.97 mg/dL (0.60-1.10); POTASSIUM 4.3 mmol/L (3.5-5.1)
== END 2016-12-17 16:20 | disposition home or self-care (01) ==
LOC: LAB 16:19
PROVIDERS: ATTEND Emergency Medicine
DX: G93.40 Encephalopathy, unspecified (principal); D50.0 Iron deficiency anemia secondary to blood loss (chronic); I10 Essential (primary) hypertension; K74.69 Other cirrhosis of liver
CPT/HCPCS: 36415; 80053; 82140; 85025; 85610

== ENCOUNTER 2017-02-03 10:38 | Outpatient (CLI) ==
[2015-10-14 20:15] VITALS: BMI 48.2
[2017-02-03 11:14] LABS: EOSINOPHILS # (AUTO) 0.4 K/ul (0.0-0.7); HEMATOCRIT 38.1 % (42.0-52.0); HEMOGLOBIN 13.3 g/dl (14.0-18.0); LYMPHOCYTES % (AUTO) 33.6 (10.0-50.0); MEAN CORPUSCULAR HEMOGLOBIN 33.3 pg (27.0-31.0); MEAN CORPUSCULAR HGB CONC 34.9 (31.8-35.4); MEAN CORPUSCULAR VOLUME 95.3 fl (80.0-94.0); MONOCYTES # (AUTO) 0.3 K/uL (0.4-2.0); MONOCYTES % (AUTO) 9.9 (0-10); NEUTROPHILS # (AUTO) 1.2 K/ul (2.0-6.9); NEUTROPHILS % (AUTO) 42.5; PLATELET COUNT 76 10^3/uL (140-440); WHITE BLOOD COUNT 2.92 K/ul (4.2-10.2)
[2017-02-03 11:22] LABS: PROTHROMBIN TIME 11.9 SEC (9.3-11.0)
[2017-02-03 11:53] LABS: ALBUMIN 3.1 g/dL (3.4-5.0); ANION GAP 8.6; BILIRUBIN,DIRECT 0.85 mg/dL (0.00-0.30); BILIRUBIN,TOTAL 2.22 mg/dL (0.00-1.20); BUN/CREATININE RATIO 14.81; CALCIUM 8.9 mg/dL (8.2-10.2); CREATININE 0.81 mg/dL (0.60-1.10); POTASSIUM 3.6 mmol/L (3.5-5.1); TOTAL PROTEIN 5.9 g/dL (6.4-8.2)
== END 2017-02-03 10:39 | disposition home or self-care (01) ==
LOC: LAB 10:38
PROVIDERS: ATTEND Nurse Practitioner
DX: K74.60 Unspecified cirrhosis of liver (principal)
CPT/HCPCS: 36415; 80048; 80076; 82105; 82140; 84443; 85025; 85610

== ENCOUNTER 2017-03-18 14:38 | Outpatient (CLI) ==
[2015-10-14 20:15] VITALS: BMI 48.2
== END 2017-03-18 14:39 | disposition home or self-care (01) ==
LOC: LAB 14:38
PROVIDERS: ATTEND Nurse Practitioner
DX: K74.60 Unspecified cirrhosis of liver (principal)
CPT/HCPCS: 36415; 80048; 80076; 82105; 82140; 84443; 85025; 85610

== ENCOUNTER 2017-03-19 10:21 | Outpatient (CLI) ==
[2015-10-14 20:15] VITALS: BMI 48.2
--- NOTE | 2017-03-19 11:34 | US ---
EXAM: Ultrasound abdomen limited right upper quadrant HISTORY: Cirrhosis COMPARISON: 09/21/2015 TECHNIQUE: Limited ultrasound abdomen right upper quadrant was performed FINDINGS: Pancreas poorly visualized secondary bowel gas shadowing. Liver coarsening and echogenici ty and nodular in contour, consistent with cirrhotic duration. Portions of the liver obscured second rachele to shadowing artifact. Gallstone in the region of the gallbladder neck. Probable gallbladder wal l thickening. No pericholecystic fluid. Technologist reports there is no sonographic Borjas's sign. No pericholecystic fluid. No biliary duct dilation with common bile duct measuring 0.6 cm, with dis segundo common bile duct obscured. Main portal vein patent with normal direction of flow. IMPRESSION: 1. Cirrhotic configuration of the liver. 2. Cholelithiasis with a gallstone in the region of the gallbladder neck. Probable gallbladder wall thickening is nonspecific. Technologist reports there is no sonographic Borjas's sign.
== END 2017-03-19 10:22 | disposition home or self-care (01) ==
LOC: RAD 10:21
PROVIDERS: ATTEND Nurse Practitioner
DX: K75.81 Nonalcoholic steatohepatitis (NASH) (principal); K74.60 Unspecified cirrhosis of liver

== ENCOUNTER 2017-04-13 14:43 | Outpatient (CLI) ==
[2015-10-14 20:15] VITALS: BMI 48.2
== END 2017-04-13 14:44 | disposition home or self-care (01) ==
LOC: LAB 14:43
PROVIDERS: ATTEND Emergency Medicine
DX: D50.0 Iron deficiency anemia secondary to blood loss (chronic) (principal); K74.69 Other cirrhosis of liver; G93.40 Encephalopathy, unspecified
CPT/HCPCS: 36415; 80053; 82140; 85025; 85610

== ENCOUNTER 2017-05-27 13:55 | Outpatient (CLI) ==
[2015-10-14 20:15] VITALS: BMI 48.2
== END 2017-05-27 13:56 | disposition home or self-care (01) ==
LOC: LAB 13:55
PROVIDERS: ATTEND Emergency Medicine
DX: G93.40 Encephalopathy, unspecified (principal); R60.9 Edema, unspecified; K74.69 Other cirrhosis of liver; D50.0 Iron deficiency anemia secondary to blood loss (chronic)
CPT/HCPCS: 36415; 80053; 82140; 85025; 85610

== ENCOUNTER 2017-07-09 15:36 | Outpatient (CLI) | payer BC, OTHER ==
[2015-10-14 20:15] VITALS: BMI 48.2
== END 2017-07-09 15:37 | disposition home or self-care (01) ==
LOC: LAB 15:36
PROVIDERS: ATTEND Nurse Practitioner
DX: K75.81 Nonalcoholic steatohepatitis (NASH) (principal); K74.60 Unspecified cirrhosis of liver; K80.64 Calculus of gallbladder and bile duct with chronic cholecystitis without obstruction
CPT/HCPCS: 36415; 80048; 80076; 82140; 84443; 85025; 85610

== ENCOUNTER 2017-08-13 13:07 | Outpatient (CLI) ==
[2015-10-14 20:15] VITALS: BMI 48.2
== END 2017-08-13 13:08 | disposition home or self-care (01) ==
LOC: LAB 13:07
PROVIDERS: ATTEND Emergency Medicine
DX: K62.5 Hemorrhage of anus and rectum (principal); K31.819 Angiodysplasia of stomach and duodenum without bleeding
CPT/HCPCS: 36415; 80048; 80076; 82728; 85027; 85610

== ENCOUNTER 2017-08-20 16:39 | Outpatient (CLI) | payer BC, OTHER ==
[2015-10-14 20:15] VITALS: BMI 48.2
== END 2017-08-20 16:40 | disposition home or self-care (01) ==
LOC: LAB 16:39
PROVIDERS: ATTEND Nurse Practitioner
DX: K75.81 Nonalcoholic steatohepatitis (NASH) (principal); R18.8 Other ascites
CPT/HCPCS: 36415; 80076; 82105; 82140; 85025; 85610

== ENCOUNTER 2017-09-23 14:49 | Outpatient (CLI) | payer BC, OTHER ==
[2015-10-14 20:15] VITALS: BMI 48.2
== END 2017-09-23 14:50 | disposition home or self-care (01) ==
LOC: LAB 14:49
PROVIDERS: ATTEND Nurse Practitioner
DX: K74.60 Unspecified cirrhosis of liver (principal); K75.81 Nonalcoholic steatohepatitis (NASH); K62.5 Hemorrhage of anus and rectum; K31.819 Angiodysplasia of stomach and duodenum without bleeding
CPT/HCPCS: 36415; 80048; 80076; 82105; 82140; 82728; 85025; 85610

== ENCOUNTER 2017-11-01 16:57 | Inpatient (IN) | payer BC, OTHER ==
--- NOTE | 2017-11-01 17:51 | ED.PDOC ---
General ED Provider: Dr. ELIOT SHEN Chief Complaint: Abdominal Pain Mode of Arrival: Wheelchair Information Source: Patient, Family Primary Care Provider: [facility] Sepsis Protocol: For patient's 13 years and over: Temp is 96.8 and below OR 101 and greater Pulse >90 BPM Resp >20/minute Acutely Altered Mental Status Are patient's symptoms suggestive of a new infection, such as: -Pneumonia -Skin, Soft Tissue -Endocarditis -UTI -Bone, Joint Infection -Implantable Device -Acute Abdominal Infection -Wound Infection -Meningitis -Blood Stream Catheter Infection -Unknown Past Medical History - Past Medical History Previously Healthy: Yes Endocrine: Reports: None Cardiovascular: Reports: None Respiratory: Reports: Asthma Hematological: Reports: None Gastrointestinal: Reports: Other ("fatty liver") Genitourinary: Reports: None Neuro/Psych: Reports: None Musculoskeletal: Reports: None Cancer: Reports: None - Surgical History General Surgical History: Reports: Appendectomy - Family History Family History: Reports: Unknown - Social History Smoking Status: Former smoker Hx Substance Use: No Alcohol Screening: None Course - Course Vital Signs: Temp Pulse Resp BP Pulse Ox 11/01/17 16:58 103.7 F H 82 20 146/65 H 95 Departure - Departure Allergies/Adverse Reactions: Allergies aspirin Allergy (Severe, Unverified 11/01/17 17:07) stomach hydromorphone HCl [From Dilaudid] Allergy (Severe, Unverified 11/01/17 17:07) N/V erythromycin base [From Erythrocin] Adverse Reaction (Verified 11/01/17 17:07) Iodinated Contrast- Oral and IV Dye Adverse Reaction (Verified 11/01/17 17:07) dye Allergy (Severe, Uncoded 11/01/17 17:07) kidney failure Patient has already notified drugstore Home Medications: Ambulatory Orders Albuterol Sulfate [Ventolin Hfa] 1 puff IH DIRECTED PRN 10/14/15 Potassium Chloride 10 meq PO BID 10/14/15 Alprazolam 0.5 mg PO BID 09/12/16 Ferrous Sulfate 325 mg PO DAILY 09/12/16 Furosemide [Lasix] 20 mg PO BID 09/12/16 Oxycodone HCl 5 mg PO every 8 hours PRN 09/12/16 Tizanidine HCl 4 mg PO PRN 09/12/16 Sucralfate [Carafate] 1 gm PO DAILY 11/01/17
--- NOTE | 2017-11-01 17:53 | ED.PDOC ---
General ED Provider: Dr. ELIOT SHEN Chief Complaint: Abdominal Pain Stated Complaint: Abdominal pain with fever and chills. Hx HAMILTON syndrome and cryptogenic cirrhosis. Has temp elevation and has not taken antipyretics due to his hx. Has "wat[place]ellon stomach" NO recent bleeding Time Seen by Physician: 17:15 Mode of Arrival: Wheelchair Information Source: Patient, Family Exam Limitations: No limitations [facility] Nursing and Triage Documentation Reviewed and Agree: Yes Does patient meet sepsis criteria?: No System Inflammatory Response Syndrome: Not Applicable Sepsis Protocol: For patient's 13 years and over: Temp is 96.8 and below OR 101 and greater Pulse >90 BPM Resp >20/minute Acutely Altered Mental Status Are patient's symptoms suggestive of a new infection, such as: -Pneumonia -Skin, Soft Tissue -Endocarditis -UTI -Bone, Joint Infection -Implantable Device -Acute Abdominal Infection -Wound Infection -Meningitis -Blood Stream Catheter Infection -Unknown GI Complaint Exam - Abdominal Pain Complaint/Exam Onset: Gradual Symptoms Are: Still present Timing: Constant Initial Severity: Moderate Current Severity: Moderate Location of Pain: Diffuse Radiates To: Reports: Back, Inguinal Character: Reports: Dull, Aching, Cramping Aggravating: Reports: Movement Alleviating: Reports: Rest Associated Signs and Symptoms: Reports: Fever, Cough AAA Risk Factors: Reports: None Cardiac Risk Factors: Reports: None Testicular Torsion Risk Factors: Reports: None Surgical Obstruction Risk Factors: Reports: None Related Surgical History: Reports: None Abdominal Findings: Present: Other (tenderness lt groin). Absent: Peritoneal signs Genitalia Exam: Present: Normal findings Differential Diagnoses: Hepatitis, Pneumonia, Renal Colic, Other Review of Systems - Review Of Systems Constitutional: Reports: No symptoms Eyes: Reports: No symptoms Ears, Nose, Mouth, Throat: Reports: No symptoms Respiratory: Reports: No symptoms Cardiac: Reports: No symptoms GI: Reports: No symptoms, Abdominal pain : Reports: No symptoms Musculoskeletal: Reports: No symptoms Skin: Reports: No symptoms Neurological: Reports: No symptoms Endocrine: Reports: No symptoms Hematologic/Lymphatic: Reports: No symptoms All Other Systems: Reviewed and Negative Past Medical History - Past Medical History Previously Healthy: Yes Endocrine: Reports: None Cardiovascular: Reports: None Respiratory: Reports: Asthma Hematological: Reports: None Gastrointestinal: Reports: Other ("fatty liver") Genitourinary: Reports: None Neuro/Psych: Reports: None Musculoskeletal: Reports: None Cancer: Reports: None - Surgical History General Surgical History: Reports: Appendectomy - Family History Family History: Reports: Unknown - Social History Smoking Status: Former smoker Hx Substance Use: No Alcohol Screening: None Physical Exam - Physical Exam Appearance: Ill-appearing, Obese Ill-appearing: Moderate Pain Distress: Mild Eyes: SOCO, EOMI, Conjunctiva clear ENT: Ears normal, Nose normal, Oropharynx normal Neck: Supple Respiratory: Airway patent, Breath sounds clear, Breath sounds equal, Respirations nonlabored Cardiovascular: RRR, Pulses normal, No rub, No murmur GI/: Soft, No masses, Bowel sounds normal, No Organomegaly, Tender Musculoskeletal: Normal strength, ROM intact, No edema, No calf tenderness Skin: Warm, Dry, Normal color Neurological: Sensation intact, Motor intact, Reflexes intact, Cranial nerves intact, Alert, Oriented Interpretation - Radiology Interpretation Radiology Interpretation By: Radiologist Radiology Results: No acute changes Exam Interpreted: CT Scan Xray Comments: Chest , abdomen and pelvis no acute changes Critical Care Note - Critical Care Note Total Time (mins): 60 Course - Course Hematology/Chemistry: 11/01/17 17:59 11/01/17 17:59 Orders, Labs, Meds: Lab Review 11/01/17 11/01/17 11/01/17 17:59 17:59 17:59 WBC 7.04 RBC 4.08 L Hgb 14.1 Hct 38.9 L MCV 95.3 H MCH 34.6 H MCHC 36.2 H RDW Coeff of Joselin 13.8 Plt Count 52 L Immature Gran % (Auto) 0.3 Neut % (Auto) 89.1 Lymph % (Auto) 5.7 L [place] % (Auto) 4.7 Eos % (Auto) 0.1 Baso % (Auto) 0.1 Immature Gran # (Auto) 0.0 Neut # (Auto) 6.3 Lymph # (Auto) 0.4 L [place] # (Auto) 0.3 L Eos # (Auto) 0.0 Baso # (Auto) 0.0 ESR 5 Sodium 131 L Potassium 3.5 Chloride 102 Carbon Dioxide 22 Anion Gap 10.5 BUN 15 Creatinine 0.88 Estimated GFR (MDRD) 92.00 BUN/Creatinine Ratio 17.04 Glucose 127 H Lactic Acid Calcium 8.7 Magnesium 1.8 Total Bilirubin 5.3 H AST 31 ALT 25 Alkaline Phosphatase 58 Troponin I 0.0110 Total Protein 6.0 L Albumin 2.9 L Globulin 3.1 Albumin/Globulin Ratio 0.94 Lipase 26 Procalcitonin Urine Color Urine Clarity Urine pH Ur Specific [place] Urine Protein Urine Glucose (UA) Urine Ketones Urine Blood Urine Nitrite Urine Bilirubin Urine Urobilinogen Ur Leukocyte Esterase Urine Microscopic WBC Ur Squamous Epith Cells 11/01/17 11/01/17 11/01/17 17:59 17:59 18:30 WBC RBC Hgb Hct MCV MCH MCHC RDW Coeff of Joselin Plt Count Immature Gran % (Auto) Neut % (Auto) Lymph % (Auto) [place] % (Auto) Eos % (Auto) Baso % (Auto) Immature Gran # (Auto) Neut # (Auto) Lymph # (Auto) [place] # (Auto) Eos # (Auto) Baso # (Auto) ESR Sodium Potassium Chloride Carbon Dioxide Anion Gap BUN Creatinine Estimated GFR (MDRD) BUN/Creatinine Ratio Glucose Lactic Acid 16.3 Calcium Magnesium Total Bilirubin AST ALT Alkaline Phosphatase Troponin I Total Protein Albumin Globulin Albumin/Globulin Ratio Lipase Procalcitonin 0.21 Urine Color [place] Urine Clarity Clear Urine pH 6.0 Ur Specific [place] 1.025 Urine Protein Trace Urine Glucose (UA) Negative Urine Ketones Negative Urine Blood Negative Urine Nitrite Negative Urine Bilirubin 1+ Urine Urobilinogen >=8.0 Ur Leukocyte Esterase Negative Urine Microscopic WBC 0-2 Ur Squamous Epith Cells 2-5 Orders Category Date Time Status EKG-(ED ONLY) Stat CARDIO 11/01/17 17:49 Completed NPO REMINDER: IMAGING ONCE CARE 11/01/17 18:27 Completed IV [ED IV/MEDIPORT/POWERPORT] .ONCE EMERGENCY 11/01/17 17:49 Active BLOOD CULTURE (ED ONLY) Stat LAB 11/01/17 17:59 Received CBC W/ AUTO DIFF Stat LAB 11/01/17 17:59 Completed CMP [COMPREHENSIVE METABOLIC PANEL] Stat LAB 11/01/17 17:59 Completed ESR Stat LAB 11/01/17 17:59 Completed LACTIC ACID Stat LAB 11/01/17 17:59 Completed LIPASE Stat LAB 11/01/17 17:59 Completed MAGNESIUM Stat LAB 11/01/17 17:59 Completed PROCALCITONIN Stat LAB 11/01/17 17:59 Completed RAPID STREP SCREEN [MOLECULAR GROUP A STREP] Stat LAB 11/01/17 17:54 Completed TROPONIN I Stat LAB 11/01/17 17:59 Completed UA [URINALYSIS C & S IF INDICATED] Stat LAB 11/01/17 18:30 Completed 0.9 % Sodium Chloride [Saline Flush] MEDS 11/01/17 17:49 Ordered 1 syr IVF PRN PRN Acetaminophen [Tylenol] MEDS 11/01/17 19:58 Stat 650 mg RC ONCE STA Ceftriaxone Sodium [Rocephin] MEDS 11/01/17 18:38 Discontinued 1 gm .ROUTE .STK-MED ONE Ceftriaxone Sodium [Rocephin] 1 gm MEDS 11/01/17 18:29 Discontinued 0.9 % Sodium Chloride [Sodium Chloride] 50 ml IV ONCE Dexamethasone 4 mg/ml Inj [Decadron 4 mg/ml Sdv] MEDS 11/01/17 20:01 Stat 4 mg IVP ONCE STA Piperacillin Sodium/Tazobactam [Zosyn 3.375 gm] 3.375 MEDS 11/01/17 20:00 Ordered gm 0.9 % Sodium Chloride [Sodium Chloride] 50 ml IV ONCE Sodium Chloride 0.9% [Sodium Chloride] 500 ml MEDS 11/01/17 18:28 Discontinued IV BOLUS CHEST, 1V AP ONLY Stat RADS 11/01/17 17:[address] ABDOMEN/PELVIS WO CONTRAST Stat RADS 11/01/17 18:[address] CHEST W/O CONTRAST Stat RADS 11/01/17 18:34 Completed Medications Generic Name Dose Route Start Last Admin Trade Name Freq PRN Reason Stop Dose Admin Dexamethasone Sodium Phosphate 4 mg 11/01/17 20:01 Decadron 4 Mg/Ml Sdv IVP 11/01/17 20:02 ONCE STA Piperacillin Sod/Tazobactam 50 mls @ 50 mls/hr 11/01/17 20:00 Sod 3.375 gm/ Sodium Chloride IV 11/01/17 20:59 ONCE STA Sodium Chloride 1 syr 11/01/17 17:49 11/01/17 18:35 Saline Flush IVF 1 syr PRN PRN Administration To flush IV Discontinued Medications Generic Name Dose Route Start Last Admin Trade Name Freq PRN Reason Stop Dose Admin Acetaminophen 650 mg 11/01/17 19:58 Tylenol RC 11/01/17 19:59 ONCE STA Sodium Chloride 500 mls @ 500 mls/hr 11/01/17 18:28 11/01/17 18:36 Sodium Chloride IV 11/01/17 19:27 500 mls/hr BOLUS STA Administration Ceftriaxone Sodium 1 gm/ 50 mls @ 75 mls/hr 11/01/17 18:29 11/01/17 18:43 Sodium Chloride IV 11/01/17 19:08 75 mls/hr ONCE STA Administration Vital Signs: Temp Pulse Resp BP Pulse Ox 11/01/17 18:27 103.3 F H 85 20 127/53 L 95 11/01/17 16:58 103.7 F H 82 20 146/65 H 95 Departure - Departure Time of Disposition: 20:00 Disposition: ADMITTED INPATIENT Discharge Problem: Fever, Sepsis, Cryptogenic cirrhosis of liver Condition: Good Pt referred to PMD for follow-up: Yes (post hospitalization ) IPMP verified?: No Additional Instructions: admit to hospital spoke with Dr Rios and reviewed orders Rec initiating zosyn and decadron Allergies/Adverse Reactions: Allergies aspirin Allergy (Severe, Unverified 11/01/17 17:07) stomach hydromorphone HCl [From Dilaudid] Allergy (Severe, Unverified 11/01/17 17:07) N/V erythromycin base [From Erythrocin] Adverse Reaction (Verified 11/01/17 17:07) Iodinated Contrast- Oral and IV Dye Adverse Reaction (Verified 11/01/17 17:07) dye Allergy (Severe, Uncoded 11/01/17 17:07) kidney failure Patient has already notified drugstore Home Medications: Ambulatory Orders Albuterol Sulfate [Ventolin Hfa] 1 puff IH DIRECTED PRN 10/14/15 Potassium Chloride 10 meq PO BID 10/14/15 Alprazolam 0.5 mg PO BID 09/12/16 Ferrous Sulfate 325 mg PO DAILY 09/12/16 Furosemide [Lasix] 20 mg PO BID 09/12/16 Oxycodone HCl 5 mg PO every 8 hours PRN 09/12/16 Tizanidine HCl 4 mg PO PRN 09/12/16 Sucralfate [Carafate] 1 gm PO DAILY 11/01/17
[2017-11-01] MEDS ORDERED: SODIUM CHLORIDE 500 ML IV STA (18:28)
[2017-11-01] MEDS ORDERED: ROCEPHIN 1 GM in SODIUM CHLORIDE 50 ML IV STA (18:29)
[2017-11-01] MEDS ORDERED: ROCEPHIN ONE (18:38)
--- NOTE | 2017-11-01 19:05 | CT ---
EXAM: CT scan of the chest without contrast HISTORY: Fever, congestion. TECHNIQUE: Helical imaging of the chest was performed without contrast. 5 mm thin axial images and coronal and sagittal reconstructions were provided for interpretation. FINDINGS: The lungs are clear. The heart is normal size. No mediastinal abnormalities are seen. No lytic or blastic lesions are seen within the osseous structures. There is enlargement of the spleen. IMPRESSION: No acute abnormalities are seen within the thorax. Probable splenomegaly. Refer to the CT scan of the abdomen and pelvis for further details.
--- NOTE | 2017-11-01 19:09 | CT ---
EXAM: CT scan of the abdomen and pelvis without contrast HISTORY: Fever, groin pain left lower abdomen pain TECHNIQUE: Helical imaging of the abdomen pelvis was performed without contrast. 3 mm thin axial im ages and coronal and sagittal reconstructions were provided for interpretation. Comparison 10/14/2015 CT scan of the abdomen and pelvis. FINDINGS: There is persistent enlargement of the spleen. The spleen measures up to 18.7 cm in heigh t and this is not changed when compared to previous study. The proximal ureters are normal size. The small and large bowel loops are normal caliber. There is no free air. There is a small calcified ga llstone seen within the lumen of the gallbladder. The helical images obtained through the pelvis demonstrate a normal appearance of the rectum, urinary bladder. Lung bases are clear. No lytic or blastic lesions are seen within the osseous structures. IMPRESSION: No evidence for small bowel obstruction or acute inflammatory change seen within the abd omen and pelvis. There is no ureteral obstruction. Persistent splenomegaly. Limited evaluation without intravenous and oral contrast.
[2017-11-01] MEDS ORDERED: TYLENOL RC STA (19:58)
[2017-11-01] MEDS ORDERED: ZOSYN 3.375 GM 3.375 GM in SODIUM CHLORIDE 50 ML IV STA (20:00)
[2017-11-01] MEDS ORDERED: DECADRON 4 MG/ML SDV IVP STA (20:01)
[2017-11-01 22:11] VITALS: BMI 34.0
[2017-11-02] MEDS: ZOSYN 3.375 GM 3.375 GM in SODIUM CHLORIDE 50 ML IV SCH ×3 (06:59→17:12)
--- NOTE | 2017-11-02 07:45 | DI ---
EXAM: CHEST FRONTAL VIEW HISTORY: Temperature elevation. COMPARISON: 10/14/2015 FINDINGS: Heart size and mediastinum remain within normal limits. Lungs are free of infiltrate. No consolidation or pleural fluid. There is no pneumothorax or acute bony finding. IMPRESSION: Findings within normal limits.
[2017-11-02] MEDS ORDERED: DECADRON 4 MG/ML SDV IM STA (08:56)
[2017-11-02] MEDS ORDERED: PROAIR HFA IH PRN (08:58)
[2017-11-02] MEDS ORDERED: NON-FORMULARY MEDICATION (Ferrous Sulfate [Ferrous Sulfate] 325 MG) PO SCH (09:00)
[2017-11-02] MEDS ORDERED: LACTULOSE 10 GM PO SCH (09:15)
[2017-11-02] MEDS ORDERED: NON-FORMULARY MEDICATION (Potassium Chloride [Potassium Chloride] 10 MEQ) PO SCH (09:15)
[2017-11-02] MEDS ORDERED: LASIX TAB PO SCH (09:30)
[2017-11-02] MEDS ORDERED: ZANAFLEX PO SCH (09:30)
[2017-11-02] MEDS: SODIUM CHLORIDE 1,000 ML IV SCH (10:55)
[2017-11-02] MEDS ORDERED: ZANAFLEX PO PRN (10:57)
[2017-11-02] MEDS: LACTULOSE PO SCH ×2 (10:59→21:19)
[2017-11-02] MEDS: XIFAXAN PO SCH ×2 (11:00→21:21)
[2017-11-02] MEDS: LASIX TAB PO SCH ×2 (11:00→17:10)
[2017-11-02] MEDS: NYSTATIN CREAM TP SCH ×3 (11:00→21:18)
[2017-11-02] MEDS: CARAFATE PO SCH (11:02)
[2017-11-02] MEDS: DUONEB NEB SCH ×3 (11:13→23:15)
[2017-11-02] MEDS: FERROUS SULFATE PO SCH (11:14)
[2017-11-02] MEDS: XANAX PO SCH ×2 (11:14→21:18)
[2017-11-02] MEDS ORDERED: MICRO-K CAP PO SCH (21:00)
[2017-11-02] MEDS ORDERED: MICRO-K CAP PO PRN (21:14)
[2017-11-02] MEDS ORDERED: PROTONIX ONE (21:16)
[2017-11-02] MEDS: PROTONIX PO SCH (21:18)
[2017-11-02] MEDS: OXYCODONE PO PRN (22:32)
[2017-11-03] MEDS: ZOSYN 3.375 GM 3.375 GM in SODIUM CHLORIDE 50 ML IV SCH ×2 (00:14→05:39)
[2017-11-03] MEDS: DUONEB NEB SCH (05:13)
[2017-11-03] MEDS: CARAFATE PO SCH (05:39)
[2017-11-03] MEDS: LASIX TAB PO SCH (05:39)
[2017-11-03 05:57] VITALS: BP 113/61; TEMP 97.4
[2017-11-03] MEDS: SODIUM CHLORIDE 1,000 ML IV SCH (06:01)
[2017-11-03] MEDS: PROTONIX PO SCH (06:39)
[2017-11-03] MEDS: LACTULOSE PO SCH (08:25)
[2017-11-03] MEDS: OXYCODONE PO PRN (08:25)
[2017-11-03] MEDS: XANAX PO SCH (08:25)
[2017-11-03] MEDS: FERROUS SULFATE PO SCH (08:25)
[2017-11-03] MEDS: NYSTATIN CREAM TP SCH (08:30)
[2017-11-03] MEDS ORDERED: FERROUS SULFATE PO SCH (09:00)
--- NOTE | 2017-11-03 11:48 | HP ---
DATE OF SERVICE: 11/01/17 CHIEF COMPLAINT: Fever. HISTORY OF PRESENT ILLNESS: This is a 52-year-old male who was playing the whole day Thursday with the grandkids in the pool and the next day when he woke up he was not feeling well, started vomiting. He vomited once, started having chills and fever was 102 at home. He has a history of liver disease and renal failure so he was scared to take Tylenol and came to the emergency room. Temperature was 103.7. He was coughing, had some wheezing. He was seen by Dr. Soto in the emergency room. White count normal. PT/INR normal. Sodium 131, glucose 137, BUN and creatinine normal. Urine negative. CT abdomen and pelvis, CT chest negative. At that time, the patient was admitted to the hospital for fever, dehydration and heat exhaustion. The patient was given a dose of Rocephin, breathing treatments and Zosyn. Decadron shot was given. REVIEW OF SYSTEMS: CONSTITUTIONAL: Weakness, tiredness. Fever and chills. HEENT: Normal. ENDOCRINE: No weight gain; no weight loss. CVS: No chest pain. No PND, no orthopnea. No shortness of breath. No PND, no orthopnea. RESPIRATORY: No cough, no congestion. No hemoptysis. GI: Vomiting and abdominal cramping. No melena. : No hematuria. No polyuria. MUSCULOSKELETAL: No joint swelling. PSYCHIATRIC: Not anxious. No depression. No suicidal thoughts. No homicidal thoughts. SKIN: Intact, no open lesions. PAST MEDICAL HISTORY: Cryptogenic liver cirrhosis History of acute renal failure History of heart murmur PAST SURGICAL HISTORY: Appendectomy Adenoidectomy Wrist surgery Anesthesia reaction - nausea PERSONAL HISTORY: , lives with . FAMILY HISTORY: Significant for diabetes MEDICATIONS: (HOME) Potassium Albuterol Ferrous Sulfate Lasix Tizanidine Xanax Oxycodone Xifaxan Lactulose Nystatin Sucralfate ALLERGIES: ASPIRIN, HYDROMORPHONE, ERYTHROMYCIN, IODINATED CONTRAST, ORAL AND IV DYE PHYSICAL EXAMINATION: V/S: BP 101/56, respiratory rate 18, heart rate 54, temperature 97, saturation 94 on room air. HEENT: Atraumatic, normocephalic. No scleral icterus. Pallor positive. Mucosa dry. NECK: Supple. No JVD, no bruit. No lymphadenopathy. No thyromegaly. HEART: S1, S2 normal. No murmur. No cyanosis or clubbing. No ascites. LUNGS: Decreased breath sounds, basilar crackles. ABDOMEN: Soft, nontender. Bowel sounds are active. No CVA tenderness. No rigidity or guarding. EXTREMITIES: No pedal edema. No cyanosis or clubbing MUSCULOSKELETAL: Normal joints, no swelling. NEUROLOGIC: The patient is awake and alert. SKIN: Intact; no open lesions. LYMPHATIC: No lymph nodes palpable. LABS: White count 7.04, hemoglobin 14.1, hematocrit 38.9, platelet count 52. Sodium 131, potassium 3.5, chloride 102, bicarb 22, BUN 15, creatinine 0.81, glucose 127. ASSESSMENT: 1. FEVER, DEHYDRATION MOSTLY LIKELY HEAT EXHAUSTION 2. CRYPTOGENIC LIVER CIRRHOSIS 3. THROMBOCYTOPENIA 4. ELEVATED TOTAL BILIRUBIN PLAN: 1. Admit patient to the regular floor 2. IV fluids 3. Tylenol p.r.n. rectal 4. Protonix 5. Zosyn q.6hr empirically covering for broad spectrum 6. IV fluids 7. Daily I & O's TIME SPENT: MORE THAN 65 minutes MTDD
--- NOTE | 2017-11-03 11:53 | PN ---
DATE OF SERVICE: 11/02/17 SUBJECTIVE: The patient was admitted from the emergency room for fever. No fever after 9 p.m. last night. He is more active. He is still feeling weak and tired with muscle cramping. REVIEW OF SYSTEMS: CONSTITUTIONAL: Weakness and tiredness. No fever, no chills. HEENT: Normal. ENDOCRINE: No weight gain, no weight loss. CVS: No angina symptoms. No CHF symptoms. No palpitations. No atypical chest pain for CAD. No shortness of breath. No PND, no orthopnea. RESPIRATORY: No cough, no hemoptysis. GI: No nausea, no vomiting. No abdominal pain. : No hematuria. No polyuria. MUSCULOSKELETAL: Positive for muscle cramping. PSYCHIATRIC: Not anxious. No depression. No suicidal thoughts. No homicidal thoughts. SKIN: Intact. No rash. PHYSICAL EXAMINATION: V/S: BP 126/60, respiratory rate 20, heart rate 59, temperature 97.5, saturation 96. HEENT: Normocephalic, atraumatic. Mucosa dry. NECK: Supple. No JVD, no carotid bruit. No lymphadenopathy. LUNGS: Clear to auscultation. No rales or rhonchi. HEART: S1, S2 normal. No S3. No murmur, gallop or regurgitation. ABDOMEN: Soft, nontender. Bowel sounds active. No rigidity. No rebound or guarding. No CVA tenderness. EXTREMITIES: No cyanosis, clubbing or pedal edema. MUSCULOSKELETAL: No joint swelling. NEUROLOGIC: Awake, alert. No focal deficit. LYMPHATIC: No lymph nodes palpable. SKIN: Intact. LABS: White count 5.29, hemoglobin 14.3, hematocrit 39.3, platelet count 46. Sodium 135, potassium 4.0, chloride 106, bicarb 23, BUN 17, creatinine 0.81, glucose 157. ASSESSMENT: 1. HEAT EXHAUSTION 2. DEHYDRATION 3. CRYPTOGENIC LIVER CIRRHOSIS PLAN: 1. Continue Zosyn 2. IV fluids 3. Tylenol p.r.n. TIME SPENT: More than 35 minutes MTDD
[2017-11-03] MEDS ORDERED: PROTONIX PO SCH (21:00)
--- NOTE | 2017-11-03 21:12 | PCM.HOSP ---
- Initial Hospital Care [id number] 70 Minutes Bedside ([id number]): 11/01 - Subsequent Care [id number] 35 Minutes per Day ([id number]): 11/02 - Hospital Discharge [id number] More than 30 Minutes ([id number]): 11/03
--- NOTE | 2017-11-04 14:41 | DS ---
DATE OF SERVICE: 11/03/17 FINAL DIAGNOSIS: 1. Heat exhaustion 2. Dehydration 3. Cirrhosis of the liver cryptogenic 4. History of kidney failure 6. Thrombocytopenia 7. Heart murmur 8. Hyperbilirubinemia 9. Status post appendectomy DISCHARGE INSTRUCTIONS: Discharge the patient home. Followup in the [facility] within 5-7 days. Continue the home medications. MEDICATIONS AT DISCHARGE: Lactulose Nystatin Xifaxan Tizanidine Albuterol Xanax Ferrous Sulfate Lasix Oxycodone Potassium Chloride Carafate NEW PRESCRIPTIONS: None DIET INSTRUCTIONS: Cardiac and heathy diet ACTIVITY: As much as tolerated DISEASE SPECIFIC EDUCATION: Heat exhaustion Dehydration HOSPITAL COURSE: The patient was admitted with fever of chills. Fever was 103.7, blood pressure 146/65. The patient had heavy and hectic day outside and came to the emergency room with fever and chills and nausea and vomiting. WBC was normal. Coagulation negative. Chemistry normal. The patient's ammonia level was 69. The patient was admitted to the hospital and started on the IV fluids and Zosyn was given as there was no source. Chest x-ray was negative. CT abdomen and pelvis negative. CT chest negative. Given his fever the patient was given antibiotics and by the next day the patient did not have any fever. The patient's fever finally broke around 9:00 on November 01 and after that no fever. The patient is up and about walking, talking and did not have any problems. BUN and creatinine became normal. Urine negative. As the patient being doing good from the initially presenting symptoms was from the heat exhaustion. No infection is going on at this time. TIME SPENT: MORE THAN 65 MINUTES MTDD
== END 2017-11-03 09:42 | disposition home or self-care (01) | DRG 864 ==
LOC: ED 16:57 → MEDSURG B 20:15
PROVIDERS: ADMIT Emergency Medicine; ATTEND Emergency Medicine
DX: R50.9 Fever, unspecified (principal); A41.9 Sepsis, unspecified organism; R01.1 Cardiac murmur, unspecified; K74.69 Other cirrhosis of liver; E80.6 Other disorders of bilirubin metabolism; E86.0 Dehydration; D69.6 Thrombocytopenia, unspecified; T67.5XXA Heat exhaustion, unspecified, initial encounter
CPT/HCPCS: 36415; 80053; 81001; 82140; 82962; 83605; 83690; 83735; 84145; 84484; 85007; 85025; 85610; 85651; 87040; 87651; 93005; 93010; 94640; 96361; 96365; 96366; 96375; 99285

== ENCOUNTER 2017-12-16 14:23 | Emergency (ER) | payer BC, OTHER ==
[2017-12-16 14:33] VITALS: BP 156/53; TEMP 100.4; BMI 33.3
[2017-12-16] MEDS ORDERED: DECADRON 4 MG/ML SDV IM STA (16:32)
--- NOTE | 2017-12-16 16:34 | ED.PDOC ---
General ED Provider: Dr. ORLANDO DUTTON Chief Complaint: Rash Stated Complaint: rash right tigh Time Seen by Physician: 14:30 (see photos seen with MERRICK AT ALL TIMES ) Mode of Arrival: Walk-In Information Source: Patient Exam Limitations: No limitations Primary Care Provider: BONNY ORONA Nursing and Triage Documentation Reviewed and Agree: Yes Does patient meet sepsis criteria?: No System Inflammatory Response Syndrome: Not Applicable Sepsis Protocol: For patient's 13 years and over: Temp is 96.8 and below OR 101 and greater Pulse >90 BPM Resp >20/minute Acutely Altered Mental Status Are patient's symptoms suggestive of a new infection, such as: -Pneumonia -Skin, Soft Tissue -Endocarditis -UTI -Bone, Joint Infection -Implantable Device -Acute Abdominal Infection -Wound Infection -Meningitis -Blood Stream Catheter Infection -Unknown Skin Complaint Exam - Skin Rash/Itching Complaint/Exam Onset/Duration: 2 DAYS SEE PHOTOS Symptoms Are: Still present Initial Severity: Mild Current Severity: Mild Potential Exposures: Reports: Unknown Aggravating: Reports: None Alleviating: Reports: None Associated Signs and Symptoms: Denies: Difficulty breathing, Fever, Chills Related History: Similar episode Differential Diagnoses: Allergic Reaction, Contact Dermatitis, Eczema Review of Systems - Review Of Systems Constitutional: Reports: No symptoms Eyes: Reports: No symptoms Ears, Nose, Mouth, Throat: Reports: No symptoms Respiratory: Reports: No symptoms Cardiac: Reports: No symptoms GI: Reports: No symptoms : Reports: No symptoms Musculoskeletal: Reports: No symptoms Skin: Reports: Rash Neurological: Reports: No symptoms Endocrine: Reports: No symptoms Hematologic/Lymphatic: Reports: No symptoms All Other Systems: Reviewed and Negative Past Medical History - Past Medical History Previously Healthy: Yes Endocrine: Reports: None Cardiovascular: Reports: None Respiratory: Reports: Asthma Hematological: Reports: None Gastrointestinal: Reports: Other ("fatty liver") Genitourinary: Reports: None Neuro/Psych: Reports: None Musculoskeletal: Reports: None Cancer: Reports: None - Surgical History General Surgical History: Reports: Appendectomy - Family History Family History: Reports: Unknown - Social History Smoking Status: Former smoker Hx Substance Use: No Alcohol Screening: None Physical Exam - Physical Exam Appearance: Well-appearing, No pain distress, Well-nourished Eyes: SOCO, EOMI, Conjunctiva clear ENT: Ears normal, Nose normal, Oropharynx normal Respiratory: Airway patent, Breath sounds clear, Breath sounds equal, Respirations nonlabored Cardiovascular: RRR, Pulses normal, No rub, No murmur GI/: Soft, Nontender, No masses, Bowel sounds normal, No Organomegaly Musculoskeletal: Normal strength, ROM intact, No edema, No calf tenderness Skin: Warm, Dry (RASH RIGHT TIGH SEE PHOTOS) Neurological: Sensation intact, Motor intact, Reflexes intact, Cranial nerves intact, Alert, Oriented Psychiatric: Affect appropriate, Mood appropriate Critical Care Note - Critical Care Note Total Time (mins): 0 Course - Course Hematology/Chemistry: 12/16/17 15:22 12/16/17 15:22 Orders, Labs, Meds: Lab Review 12/16/17 12/16/17 12/16/17 15:22 15:22 15:22 WBC 7.86 RBC 4.16 L Hgb 14.3 Hct 39.9 L MCV 95.9 H MCH 34.4 H MCHC 35.8 H RDW Coeff of Joselin 14.1 Plt Count 53 L Immature Gran % (Auto) 0.5 Neut % (Auto) 83.8 Lymph % (Auto) 7.5 L [place] % (Auto) 7.3 Eos % (Auto) 0.6 Baso % (Auto) 0.3 Immature Gran # (Auto) 0.0 Neut # (Auto) 6.6 Lymph # (Auto) 0.6 [place] # (Auto) 0.6 Eos # (Auto) 0.1 Baso # (Auto) 0.0 Sodium 134.6 L Potassium 3.74 Chloride 105.2 Carbon Dioxide 23.8 Anion Gap 9.34 BUN 12.8 Creatinine 0.71 Estimated GFR (MDRD) 117.00 BUN/Creatinine Ratio 18.02 Glucose 97.0 Lactic Acid 1.21 Calcium 8.65 Total Bilirubin 4.99 H AST 38.7 ALT 27.2 Alkaline Phosphatase 57.1 Total Protein 6.74 Albumin 3.36 L Globulin 3.38 Albumin/Globulin Ratio 0.99 Procalcitonin 12/16/17 15:22 WBC RBC Hgb Hct MCV MCH MCHC RDW Coeff of Joselin Plt Count Immature Gran % (Auto) Neut % (Auto) Lymph % (Auto) [place] % (Auto) Eos % (Auto) Baso % (Auto) Immature Gran # (Auto) Neut # (Auto) Lymph # (Auto) [place] # (Auto) Eos # (Auto) Baso # (Auto) Sodium Potassium Chloride Carbon Dioxide Anion Gap BUN Creatinine Estimated GFR (MDRD) BUN/Creatinine Ratio Glucose Lactic Acid Calcium Total Bilirubin AST ALT Alkaline Phosphatase Total Protein Albumin Globulin Albumin/Globulin Ratio Procalcitonin 0.09 Orders Category Date Time Status BLOOD CULTURE (ED ONLY) Stat LAB 12/16/17 15:22 Received CBC W/ AUTO DIFF Stat LAB 12/16/17 15:22 Completed COMPREHENSIVE METABOLIC PANEL Stat LAB 12/16/17 15:22 Completed LACTIC ACID Stat LAB 12/16/17 15:22 Completed PROCALCITONIN Stat LAB 12/16/17 15:22 Completed Dexamethasone 4 mg/ml Inj [Decadron 4 mg/ml Sdv] MEDS 12/16/17 16:32 Stat 4 mg IM ONCE STA Medications Generic Name Dose Route Start Last Admin Trade Name Freq PRN Reason Stop Dose Admin Dexamethasone Sodium Phosphate 4 mg 12/16/17 16:32 Decadron 4 Mg/Ml Sdv IM 12/16/17 16:33 ONCE STA Vital Signs: Temp Pulse Resp BP Pulse Ox 12/16/17 14:23 100.4 F H 93 H 20 156/53 H 93 L Departure - Departure Time of Disposition: 16:34 Disposition: HOME SELF-CARE Discharge Problem: Acute maculopapular rash Instructions: Acute Rash (ED) Condition: Good Pt referred to PMD for follow-up: Yes IPMP verified?: No Additional Instructions: Please call your Family Physician as soon as possible to schedule a follow-up appointment. Allergies/Adverse Reactions: Allergies aspirin Allergy (Severe, Unverified 11/01/17 17:07) stomach hydromorphone HCl [From Dilaudid] Allergy (Severe, Unverified 11/01/17 17:07) N/V erythromycin base [From Erythrocin] Adverse Reaction (Verified 11/01/17 17:07) Iodinated Contrast- Oral and IV Dye Adverse Reaction (Verified 11/01/17 17:07) dye Allergy (Severe, Uncoded 11/01/17 17:07) kidney failure Patient has already notified drugstore Home Medications: Ambulatory Orders Albuterol Sulfate [Ventolin Hfa] 1 puff IH DIRECTED PRN 10/14/15 Potassium Chloride 10 meq PO BS PRN 10/14/15 Alprazolam 0.5 mg PO BID PRN 09/12/16 Ferrous Sulfate 325 mg PO DAILY PRN 09/12/16 Furosemide [Lasix] 20 mg PO BID 09/12/16 Oxycodone HCl 5 mg PO every 8 hours PRN PRN 09/12/16 Sucralfate [Carafate] 1 gm PO DAILY 11/01/17 Milk Thistle 500 mg PO DAILY 12/16/17 Ursodiol 300 mg PO BID 12/16/17 Disposition Discussed With: Patient
== END 2017-12-16 17:08 | disposition home or self-care (01) ==
LOC: ED 14:23
DX: R21 Rash and other nonspecific skin eruption (principal); D69.6 Thrombocytopenia, unspecified
CPT/HCPCS: 36415; 80053; 83605; 84145; 85025; 87040; 96372; 99283

== ENCOUNTER 2018-04-12 12:27 | Inpatient (IN) ==
[2018-04-12 12:39] VITALS: BMI 32.5
--- NOTE | 2018-04-12 14:00 | ED.PDOC ---
General ED Provider: Dr. ORLANDO DUTTON Chief Complaint: Fever Stated Complaint: had a biopsy right anticubtal area family is worried about infection Time Seen by Physician: 12:33 (see photos twyla present at all times ) Mode of Arrival: Wheelchair Information Source: Patient Exam Limitations: No limitations Primary Care Provider: LINDSEY PIERCE Nursing and Triage Documentation Reviewed and Agree: Yes Does patient meet sepsis criteria?: No If yes, has appropriate treatment been initiated?: No System Inflammatory Response Syndrome: Not Applicable Sepsis Protocol: For patient's 13 years and over: Temp is 96.8 and below OR 101 and greater Pulse >90 BPM Resp >20/minute Acutely Altered Mental Status Are patient's symptoms suggestive of a new infection, such as: -Pneumonia -Skin, Soft Tissue -Endocarditis -UTI -Bone, Joint Infection -Implantable Device -Acute Abdominal Infection -Wound Infection -Meningitis -Blood Stream Catheter Infection -Unknown Skin Complaint Exam - Skin/Soft Tissue Complaint/Exam Onset/Duration: biopsy 4 days ago Symptoms Are: Still present Initial Severity: Mild Current Severity: None Character: Reports: Redness. Denies: Swelling, Raised, Painful Aggravating: Reports: None Associated Signs and Symptoms: Denies: Fever, Chills, Itching, Drainage, Bruising, Tenderness, Red streaks, Joint swelling Review of Systems - Review Of Systems Constitutional: Reports: No symptoms Eyes: Reports: No symptoms Ears, Nose, Mouth, Throat: Reports: No symptoms Respiratory: Reports: No symptoms Cardiac: Reports: No symptoms GI: Reports: No symptoms : Reports: No symptoms Musculoskeletal: Reports: No symptoms Skin: Reports: No symptoms Neurological: Reports: No symptoms Endocrine: Reports: No symptoms Hematologic/Lymphatic: Reports: No symptoms All Other Systems: Reviewed and Negative Past Medical History - Past Medical History Previously Healthy: Yes Endocrine: Reports: None Cardiovascular: Reports: None Respiratory: Reports: Asthma Hematological: Reports: None Gastrointestinal: Reports: Other ("fatty liver") Genitourinary: Reports: None Neuro/Psych: Reports: None Musculoskeletal: Reports: None Cancer: Reports: None - Surgical History General Surgical History: Reports: Appendectomy - Family History Family History: Reports: Unknown - Social History Smoking Status: Current some day smoker Hx Substance Use: No Alcohol Screening: None Physical Exam - Physical Exam Appearance: Well-appearing, No pain distress, Well-nourished Eyes: SOCO, EOMI, Conjunctiva clear ENT: Ears normal, Nose normal, Oropharynx normal Respiratory: Airway patent, Breath sounds clear, Breath sounds equal, Respirations nonlabored Cardiovascular: RRR, Pulses normal, No rub, No murmur GI/: Soft, Nontender, No masses, Bowel sounds normal, No Organomegaly Musculoskeletal: Normal strength, ROM intact, No edema, No calf tenderness Skin: Warm, Dry (biopsy site negative for infection see photos ) Neurological: Sensation intact, Motor intact, Reflexes intact, Cranial nerves intact, Alert, Oriented Psychiatric: Affect appropriate, Mood appropriate Critical Care Note - Critical Care Note Total Time (mins): 0 Course - Course Hematology/Chemistry: 04/12/18 13:00 04/12/18 13:00 Orders, Labs, Meds: Lab Review 04/12/18 04/12/18 04/12/18 13:00 13:00 13:00 WBC 9.37 RBC 4.15 L Hgb 14.0 Hct 39.2 L MCV 94.5 H MCH 33.7 H MCHC 35.7 H RDW Coeff of Joselin 14.0 Plt Count 55 L Immature Gran % (Auto) 0.3 Neut % (Auto) 89.5 Lymph % (Auto) 5.0 L [place] % (Auto) 5.1 Eos % (Auto) 0.0 Baso % (Auto) 0.1 Immature Gran # (Auto) 0.0 Neut # (Auto) 8.4 H Lymph # (Auto) 0.5 L [place] # (Auto) 0.5 Eos # (Auto) 0.0 Baso # (Auto) 0.0 Sodium 132.3 L Potassium 3.74 Chloride 101.8 Carbon Dioxide 20.7 L Anion Gap 13.54 BUN 13.5 Creatinine 0.83 Estimated GFR (MDRD) 98.00 BUN/Creatinine Ratio 16.26 Glucose 130.4 H Lactic Acid Calcium 8.61 Total Bilirubin 5.43 H AST 37.7 ALT 26.8 Alkaline Phosphatase 52.7 Total Creatine Kinase 53.1 L Troponin I < 0.012 Total Protein 6.61 Albumin 3.30 L Globulin 3.31 Albumin/Globulin Ratio 0.99 Procalcitonin 0.24 04/12/18 13:00 WBC RBC Hgb Hct MCV MCH MCHC RDW Coeff of Joselin Plt Count Immature Gran % (Auto) Neut % (Auto) Lymph % (Auto) [place] % (Auto) Eos % (Auto) Baso % (Auto) Immature Gran # (Auto) Neut # (Auto) Lymph # (Auto) [place] # (Auto) Eos # (Auto) Baso # (Auto) Sodium Potassium Chloride Carbon Dioxide Anion Gap BUN Creatinine Estimated GFR (MDRD) BUN/Creatinine Ratio Glucose Lactic Acid 1.49 Calcium Total Bilirubin AST ALT Alkaline Phosphatase Total Creatine Kinase Troponin I Total Protein Albumin Globulin Albumin/Globulin Ratio Procalcitonin Orders Category Date Time Status EKG-(ED ONLY) Stat CARDIO 04/12/18 13:00 Completed BLOOD CULTURE (ED ONLY) Stat LAB 04/12/18 13:09 Received CBC W/ AUTO DIFF Stat LAB 04/12/18 13:00 Completed COMPREHENSIVE METABOLIC PANEL Stat LAB 04/12/18 13:00 Completed CREATINE KINASE Stat LAB 04/12/18 13:00 Completed LACTIC ACID Stat LAB 04/12/18 13:00 Completed PROCALCITONIN Stat LAB 04/12/18 13:00 Completed TROPONIN I Stat LAB 04/12/18 13:00 Completed URINALYSIS C & S IF INDICATED Stat LAB 04/12/18 13:53 Ordered Vital Signs: Temp Pulse Resp BP Pulse Ox 04/12/18 12:28 103.0 F H 91 H 20 152/63 H 95 Departure - Departure Time of Disposition: 14:00 Disposition: HOME SELF-CARE Discharge Problem: Visit for wound check Instructions: Puncture Wound (DC), Acute Wound Care (ED) Condition: Good Pt referred to PMD for follow-up: Yes IPMP verified?: No Allergies/Adverse Reactions: Allergies aspirin Allergy (Severe, Verified 04/12/18 12:41) stomach hydromorphone HCl [From Dilaudid] Allergy (Severe, Verified 04/12/18 12:41) N/V erythromycin base [From Erythrocin] Adverse Reaction (Verified 04/12/18 12:41) Iodinated Contrast- Oral and IV Dye Adverse Reaction (Verified 04/12/18 12:41) dye Allergy (Severe, Uncoded 11/01/17 17:07) kidney failure Patient has already notified drugstore Home Medications: Ambulatory Orders Potassium Chloride 10 meq PO BS PRN 10/14/15 Oxycodone HCl 5 mg PO every 8 hours PRN PRN 09/12/16 Milk Thistle 500 mg PO DAILY 10/03/18 Lactulose 20 gm PO DAILY 04/12/18
--- NOTE | 2018-04-12 16:14 | ED.PDOC ---
General ED Provider: Dr. ORLANDO DUTTON Chief Complaint: Fever Stated Complaint: fever chills, rash left leg Time Seen by Physician: 12:33 (see photos seen with nurse at all times ) Mode of Arrival: Wheelchair Information Source: Patient Exam Limitations: No limitations Primary Care Provider: LINDSEY PIERCE Nursing and Triage Documentation Reviewed and Agree: Yes Does patient meet sepsis criteria?: Yes If yes, has appropriate treatment been initiated?: Yes System Inflammatory Response Syndrome: Temp 101F or Greater Sepsis Protocol: For patient's 13 years and over: Temp is 96.8 and below OR 101 and greater Pulse >90 BPM Resp >20/minute Acutely Altered Mental Status Are patient's symptoms suggestive of a new infection, such as: -Pneumonia -Skin, Soft Tissue -Endocarditis -UTI -Bone, Joint Infection -Implantable Device -Acute Abdominal Infection -Wound Infection -Meningitis -Blood Stream Catheter Infection -Unknown Skin Complaint Exam - Skin Rash/Itching Complaint/Exam Onset/Duration: 4 days ago see photos Symptoms Are: Still present Initial Severity: Mild Current Severity: Mild Potential Exposures: Reports: Unknown Aggravating: Reports: None Alleviating: Reports: None Associated Signs and Symptoms: Denies: Difficulty breathing, Fever, Chills Related History: Similar episode Skin Findings: Present: Normal findings Differential Diagnoses: Other (vasculitis) Review of Systems - Review Of Systems Constitutional: Reports: Fever, Malaise, Loss of appetite Eyes: Reports: No symptoms Ears, Nose, Mouth, Throat: Reports: No symptoms Respiratory: Reports: No symptoms Cardiac: Reports: No symptoms GI: Reports: No symptoms : Reports: No symptoms Musculoskeletal: Reports: No symptoms Skin: Reports: Rash (see photos) Neurological: Reports: No symptoms Endocrine: Reports: No symptoms Hematologic/Lymphatic: Reports: No symptoms All Other Systems: Reviewed and Negative Past Medical History - Past Medical History Previously Healthy: Yes Endocrine: Reports: None Cardiovascular: Reports: None Respiratory: Reports: Asthma Hematological: Reports: None Gastrointestinal: Reports: Other ("fatty liver") Genitourinary: Reports: None Neuro/Psych: Reports: None Musculoskeletal: Reports: None Cancer: Reports: None - Surgical History General Surgical History: Reports: Appendectomy - Family History Family History: Reports: Unknown - Social History Smoking Status: Current some day smoker Hx Substance Use: No Alcohol Screening: None Physical Exam - Physical Exam Appearance: Well-appearing, No pain distress, Well-nourished Eyes: SOCO, EOMI, Conjunctiva clear ENT: Ears normal, Nose normal, Oropharynx normal Respiratory: Airway patent, Breath sounds clear, Breath sounds equal, Respirations nonlabored Cardiovascular: RRR, Pulses normal, No rub, No murmur GI/: Soft, Nontender, No masses, Bowel sounds normal, No Organomegaly Musculoskeletal: Normal strength, ROM intact, No edema, No calf tenderness Skin: Warm, Dry (rash see photos involving left leg) Neurological: Sensation intact, Motor intact, Reflexes intact, Cranial nerves intact, Alert, Oriented Psychiatric: Affect appropriate, Mood appropriate Physician Notification - Case Discussed Physician Notified: [email or web address] Time of Notification: 16:14 Admit To: Inpatient Critical Care Note - Critical Care Note Total Time (mins): 0 Course - Course Hematology/Chemistry: 04/12/18 13:00 04/12/18 13:00 Orders, Labs, Meds: Lab Review 04/12/18 04/12/18 04/12/18 13:00 13:00 13:00 WBC 9.37 RBC 4.15 L Hgb 14.0 Hct 39.2 L MCV 94.5 H MCH 33.7 H MCHC 35.7 H RDW Coeff of Joselin 14.0 Plt Count 55 L Immature Gran % (Auto) 0.3 Neut % (Auto) 89.5 Lymph % (Auto) 5.0 L [place] % (Auto) 5.1 Eos % (Auto) 0.0 Baso % (Auto) 0.1 Immature Gran # (Auto) 0.0 Neut # (Auto) 8.4 H Lymph # (Auto) 0.5 L [place] # (Auto) 0.5 Eos # (Auto) 0.0 Baso # (Auto) 0.0 Sodium 132.3 L Potassium 3.74 Chloride 101.8 Carbon Dioxide 20.7 L Anion Gap 13.54 BUN 13.5 Creatinine 0.83 Estimated GFR (MDRD) 98.00 BUN/Creatinine Ratio 16.26 Glucose 130.4 H Lactic Acid Calcium 8.61 Total Bilirubin 5.43 H AST 37.7 ALT 26.8 Alkaline Phosphatase 52.7 Total Creatine Kinase 53.1 L Troponin I < 0.012 Total Protein 6.61 Albumin 3.30 L Globulin 3.31 Albumin/Globulin Ratio 0.99 Procalcitonin 0.24 Urine Color Urine Clarity Urine pH Ur Specific [place] Urine Protein Urine Glucose (UA) Urine Ketones Urine Blood Urine Nitrite Urine Bilirubin Urine Urobilinogen Ur Leukocyte Esterase Urine Microscopic WBC Ur Squamous Epith Cells Urine Bacteria 04/12/18 04/12/18 13:00 13:50 WBC RBC Hgb Hct MCV MCH MCHC RDW Coeff of Joselin Plt Count Immature Gran % (Auto) Neut % (Auto) Lymph % (Auto) [place] % (Auto) Eos % (Auto) Baso % (Auto) Immature Gran # (Auto) Neut # (Auto) Lymph # (Auto) [place] # (Auto) Eos # (Auto) Baso # (Auto) Sodium Potassium Chloride Carbon Dioxide Anion Gap BUN Creatinine Estimated GFR (MDRD) BUN/Creatinine Ratio Glucose Lactic Acid 1.49 Calcium Total Bilirubin AST ALT Alkaline Phosphatase Total Creatine Kinase Troponin I Total Protein Albumin Globulin Albumin/Globulin Ratio Procalcitonin Urine Color Yellow Urine Clarity Clear Urine pH 6.0 Ur Specific [place] 1.015 Urine Protein Negative Urine Glucose (UA) Negative Urine Ketones Trace Urine Blood Negative Urine Nitrite Positive Urine Bilirubin 1+ Urine Urobilinogen 1.0 Ur Leukocyte Esterase Negative Urine Microscopic WBC 2-5 Ur Squamous Epith Cells 0-2 Urine Bacteria Trace Orders Category Date Time Status EKG-(ED ONLY) Stat CARDIO 04/12/18 13:00 Completed BLOOD CULTURE (ED ONLY) Stat LAB 04/12/18 13:09 Received CBC W/ AUTO DIFF Stat LAB 04/12/18 13:00 Completed COMPREHENSIVE METABOLIC PANEL Stat LAB 04/12/18 13:00 Completed CREATINE KINASE Stat LAB 04/12/18 13:00 Completed FLU A/B MOLECULAR Stat LAB 04/12/18 16:05 Uncollected LACTIC ACID Stat LAB 04/12/18 13:00 Completed MOLECULAR GROUP A STREP Stat LAB 04/12/18 16:05 Uncollected PROCALCITONIN Stat LAB 04/12/18 13:00 Completed TROPONIN I Stat LAB 04/12/18 13:00 Completed URINALYSIS C & S IF INDICATED Stat LAB 04/12/18 13:50 Completed URINE CULTURE Stat LAB 04/12/18 13:50 Received CHEST, 2 VIEWS PA & LAT Stat RADS 04/12/18 16:05 Ordered Vital Signs: Temp Pulse Resp BP Pulse Ox 04/12/18 12:28 103.0 F H 91 H 20 152/63 H 95 Departure - Departure Time of Disposition: 16:14 Disposition: ADMITTED INPATIENT Discharge Problem: Cellulitis of left leg, Thrombocytopenia Fever Qualifiers: Fever type: unspecified Qualified Code(s): R50.9 - Fever, unspecified Condition: Good Pt referred to PMD for follow-up: No IPMP verified?: No Additional Instructions: Please call your Family Physician as soon as possible to schedule a follow-up appointment. Allergies/Adverse Reactions: Allergies aspirin Allergy (Severe, Verified 04/12/18 12:41) stomach hydromorphone HCl [From Dilaudid] Allergy (Severe, Verified 04/12/18 12:41) N/V erythromycin base [From Erythrocin] Adverse Reaction (Verified 04/12/18 12:41) Iodinated Contrast- Oral and IV Dye Adverse Reaction (Verified 04/12/18 12:41) dye Allergy (Severe, Uncoded 11/01/17 17:07) kidney failure Patient has already notified drugstore Home Medications: Ambulatory Orders Potassium Chloride 10 meq PO BS PRN 10/14/15 Oxycodone HCl 5 mg PO every 8 hours PRN PRN 09/12/16 Milk Thistle 500 mg PO DAILY 12/16/17 Lactulose 20 gm PO DAILY 04/12/18
[2018-04-12] MEDS ORDERED: OXYCODONE PO PRN (16:16)
[2018-04-12] MEDS ORDERED: VANCOMYCIN 1 GM in SODIUM CHLORIDE 250 ML IV STA (16:19)
[2018-04-12] MEDS ORDERED: ROCEPHIN 1 GM in SODIUM CHLORIDE 50 ML IV STA (16:21)
[2018-04-12] MEDS ORDERED: ZANAFLEX PO SCH (16:30)
[2018-04-12] MEDS ORDERED: LASIX TAB PO SCH (16:30)
--- NOTE | 2018-04-12 16:31 | DI ---
EXAM: Two view(s)chest. HISTORY: Cough and fever. COMPARISON: 11/01/2017 TECHNIQUE: Two view(s) of the chest. FINDINGS: Lungs: The lung voulmes are normal. The lungs are clear without consolidation or effusion. There are no suspicious nodules. The pulmonary interstitium is within normal limits. There is no pneumothorax. Cardiovascular: The heart size and pulmonary vasculature is normal.. The aorta is unremarkable. Stephanie/Mediastinum: Normal. Osseous structures. Normal for age. IMPRESSION: No acute pulmonary disease.
--- NOTE | 2018-04-12 16:55 | PCM ---
- Chief Complaint Chief Complaint: Fever, Rash - History of Present Illness History of Present Illness: 53 yr old WM presented to ED today around 12:33 with fever/chills and left leg rash. The patient arrived in and provided own history. In ER temp 103 degrees, flu negative, strep negative, Pulse 91, RR20, BP 152/63, pulse ox 95%. Dr. Ruby called me at 16:14 and noted that patient had cellulitis, c/o pain in his leg and has chronic thrombocytopenia. I checked back and levels were in the 50's since 2017. Labs in ER showed WBC 9.37, hgb 14, plt 55. CMP sodium 132.3, K+ 3.74, Cl 101.8, Co2 20.7, BUN 13.5, cr 0.83 and glucose 130.4. Procalcitonin was negative at 0.24. Lactic acid was normal at 1.49. UA trace ketones, SG 1.015, else reasonable. CK negative, troponin 1 negative. AST 37.7 and ALT 26.8. I will check PT/PTT/INR and add this. Rash present 4 days mild to moderate severity, no known exposures. NO alleviating/aggravating factors, similar episodes historically dx with cellulitis. No SOA, no diaphoresis, no chest pain, no N/V/D. Reported to ER fever/malaise/decreased appetite. H/o Fatty liver. Exam showed normal except for lacy rash along mid thigh herman on left, photographs taken. THis involved a large portion of medial thigh. Sensation intact, motor intact, no neuro deficits. Dr. uRby and I reviewed case together and I summarized the findings within this note. Labs reviewed, EKG NSR reviewed and interpreted by me independently and obtained/ summarized records from provider in ER. Patient was admitted to room 118-1. I saw patient in ER 1700. I recommended Vancomycin IV PO clinda and he received rocephin in Er. Will sherif edges with skin pen and see how he does over next 24- 48 hours. Patient notes history of HAMILTON, he has no history of hepatitis C. 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 The patient had a mildly elevated PT with INR of 1.3 and PTT normal. The patient has edema and erythema from mid thigh down medial aspect of herman. He has nothing on right leg. Left leg involving herman, left medial knee. Prominent surface area involved. Blanching significantly and edges marked as noted. He reported emesis over last 48 hours, non bloody regurgitant emesis. He is very thirsty. entered into room, permission given to speak freely and noted that he has had diarrhea as well 5-6x over last week but none in last 24 hours. When listening to his chest, I noted that he had murmur today. , present in room noted likely due to dehydration. The patient has tested negative for flu today, negative for strep but wheezing and SOA. He denied chest pain, denied PND, denied orthopnea, denied vision changes, no BURDEN, no urinary symptoms (normal uout and no freq/hesitancy or burning). He has prominent fever up to 103 degrees over last 1 week. He has history of asthma, worsening lately. No known exposures, no injury, rash came on all of a sudden over last few days and had spread outward. Hot to touch, painful to touch rates pain at 8/10. He has oxycodone 5mg ordered. He is allergic to hydromorphone. BP is mildly elevated, which may be secondary to pain response. - Review of Systems Constitutional: fever, chills, weakness, sweats, fatigue, loss of appetite Eyes: No: blurred vision, double-vision, discharge, itching, pain, redness, photophobia, other Ears: No: pain, bleeding, drainage, ringing, hearing loss, other Nose: congestion, discharge. No: bleeding, other Throat: pain. No: swelling, voice change, other Mouth: No: bleeding, pain, swelling, other Respiratory: cough, shortness of air, wheeze. No: hemoptysis, pain with breathing, other Cardiovascular: No: chest pain, left arm pain, diaphoresis, PND, orthopnea, edema, palpitations, syncope, other Gastrointestinal: nausea, vomiting, diarrhea, other (N/V/D now resolved. ). No : abdominal pain, melena, hematemesis, hematochezia, dysphagia, constipation Genitourinary: No: dysuria, hematuria, frequency, incontinence, flank pain, penile discharge, testicular pain, testicular swelling, other Neurological: No: headache, other, dizziness, seizure, numbness, weakness, speech difficulty, problems with walking, tremor, fainting Musculoskeletal: pain (Left thigh, let leg medial thigh, herman medial/lateral). No: swelling in joints, other Skin: rash, other (Suspected cellulitis. ). No: pruritus, lacerations, wounds, bruising Immunology: No: hives, itching, frequent infections, difficulty healing, other Hematology: easy bruising (Chronic thrombocytopenia) Endocrine: No: weight changes, cold intolerance, heat intolerance, excessive thirst, excessive hunger, polyuria, other Psychiatric: No: depression, anxiety, sleeplessness, hopelessness, suicidal, hallucinations, other Habits: No: tobacco use, substance use, alcohol use, other - Past Medical History Past Medical History: Asthma, Chronic arthritis, mitral valve prolapse, GERD, Cryptogenic cirrhosis of liver, iron deficiency anemia due to chronic blood loss , encephalopthy, dependent edema, essential HTN, Obesity BMI 32.5. Chronic pain. HAMILTON - Past Surgical History Past Surgical History: Adeoindectomy, appendectomy, bilateral PE tubes, left knee scope. - Allergies Allergies/Adverse Reactions: Allergies Allergy/AdvReac Type Severity Reaction Status Date / Time aspirin Allergy Severe stomach Verified 04/12/18 12:41 hydromorphone HCl Allergy Severe N/V Verified 04/12/18 12:41 [From Dilaudid] erythromycin base AdvReac Verified 04/12/18 12:41 [From Erythrocin] Iodinated Contrast- Oral and AdvReac Verified 04/12/18 12:41 IV Dye dye Allergy Severe kidney Uncoded 11/01/17 17:07 failure - Medications Medications: Medications Generic Name Dose Route Start Last Admin Trade Name Freq PRN Reason Stop Dose Admin Albuterol/Ipratropium 1 vial 04/12/18 18:00 Duoneb NEB [id number] JAVON Furosemide 20 mg 04/12/18 16:30 Lasix Tab PO BID PRN JAVON Vancomycin HCl 1 gm/ Sodium 250 mls @ 250 mls/hr 04/12/18 16:19 Chloride IV 04/12/18 17:18 ONCE STA Sodium Chloride 1,000 mls @ 75 mls/hr 04/12/18 16:30 Sodium Chloride IV .[id number] JAVON Ceftriaxone Sodium 1 gm/ 50 mls @ 75 mls/hr 04/12/18 16:21 Sodium Chloride IV 04/12/18 17:00 ONCE STA Lactulose 20 gm 04/13/18 09:00 Lactulose PO DAILY JAVON Non-Formulary Medication 500 mg 04/13/18 09:00 Milk Thistle [Milk Thistle] PO DAILY JAVON Non-Formulary Medication 1 each 04/12/18 16:30 Nystatin [Nystatin] PO PRN JAVON Nystatin applic 04/12/18 21:00 Nystatin Cream TP TID JAVON Oxycodone HCl 5 mg 04/12/18 16:16 Oxycodone PO every 8 hours PRN PRN Analgesia Tizanidine HCl 4 mg 04/12/18 16:30 Zanaflex PO daily prn JAVON Ursodiol 300 mg 04/12/18 21:00 Actigall PO BID JAVON - Family History Past Family History: Mother/father . LIver cancer in his grandmother led to . Father with liver cancer and disease. Mother had complications from DM. The patient has 1 child, 1 grand daughter. sameer benavides . - Social History Past Social History: lives with and grand daughter. Non smoker, never smoked. The patient is sikhism, no drugs, no etoh. - Vital Signs Temperature: 103.0 F Pulse Rate: 91 Respiratory Rate: 20 Blood Pressure: 152/63 O2 Sat by Pulse Oximetry: 95 - Body Composition Height: 6 ft Weight: 240 lb Body Mass Index (BMI): 32.5 - Physical Examination HEENT: Constitutional: Appearance-No acute distress, Consistent with stated age. Orientation- Oriented x 3, alertGait-Normal pace, normal arm movement. Build and Nutrition-Overweight, BMI 28.5. General- Patient is pleasant and cooperative with the interview and exam. Integumentary: General-No rashes, ulcers or lesions except LLE. Palpation- Normal skin moisture/turgor. Skin is warm to touch, appropriate. Capillary refill is normal bilateral Upper and lower extremity. RASH: Cellulitis/ erysipelas LLE involving most of tissue below left hip/inguinal ligament. Spared lateral thigh and foot. Head/Neck: Head- normocephalic and atraumatic. Neck- without visible/palpable lumps or pulsations. Palpation- No bony tenderness about head/neck along frontal, occipital, temporal, parietal, mastoid, jawline, zygoma, orbit or any other location. NO temporal artery tenderness. No TMJ tenderness. Neck Supple. Thyroid-No thyromegaly, no nodules Eye: Bilaterally PERRLA, EOMI. No discharge. Upper and lower eyelids are normal. Sclera/conjunctiva normal without discharge. Cornea is normal and clear. Lens is normal. Eyeball appears normal. No ciliary flushing, no conjunctival injection. ENMT: Pinna- normal without tenderness or erythema. External auditory canal Left- normal without erythema or discharge, no excessive cerumen. External auditory canal Right-normal without erythema or discharge, no excessive cerumen. TM left- Wilson/pearly, normal light reflex and anatomy TM Right- Wilson/ pearly, normal light reflex and anatomy Hearing Assessment-normal to conversational speech. Nose and sinus- No sinus tenderness along frontal/ maxillary region. External appearance normal and midline. Nares- bilateral quiet airflow, no discharge. Nasal mucosa- No bleeding noted and no ulcerations observed. [place], moist. Turbinates non boggy. Lips- normal color, moist without cracks/lesions Oral Cavity/Palate- hard/soft palate intact without lesions, oral mucosa pink and moist. Oropharynx- no pharyngeal erythema, Uvula midline. No post nasal drip. No exudate. Salivary glands- Non tender to palpation CHEST/LUNG: Inspection- symmetric chest wall no pectus deformity. Normal effort , no distress, no use of accessory muscles. Palpation- nontender sternum, ribline. No abnormal pulsations. Auscultation- Breath sounds normal throughout all lung ferrell. Normal tracheal sounds, Normal bronchial sounds overlying sternum, Bronchovessicular sounds normal between scapulae posteriorly, Normal vessicular breath sounds heard throughout periphery. Lungs are clear today. Adventitious sounds- No wheezes, rales, rhonchi. CARDIOVASCULAR: Carotid artery- normal, no bruits or abnormal pulsations. Jugular vein- no pulsations. Palpation/Percussion- Normal PMI, no palpable thrill Auscultation- Regular rate and rhythm. III/ systolic murmur noted in sitting and supine positions. Did not radiate into axilla or carotid. Extremities- no digital clubbing, cyanosis, edema, increased warmth. ABDOMEN: Inspection- normal and no visible pulsations. Normal contour. Auscultation- Bowel sounds normal, no abdominal bruits. Palpation/Percussion- soft, non-tender, no rebound tenderness, no rigidity (guarding), no jar tenderness, no masses. Liver-hepatomegaly, Spleen no splenomegaly, Hernias- none. Rectal not examined. Peripheral Vascular: Upper extremity Left- Normal temperature with pink nailbeds and no ulcerations. Upper extremity Right- Normal temperature with pink nailbeds and no ulcerations. Lower extremity- Normal temperature with pink nailbeds and no ulcerations. DP pulses 2+ bilaterally. Pedal hair intact. Normal capillary refill. Edema- No edema. Musculoskeletal: Generalized-No generalized swelling or edema of extremities, no digital clubbing or cyanosis, neurovascularly intact all four extremities. Upper extremity- Symmetrical posture. No visible deformity. Normal sensation along medial and lateral upper extremity proximally and distally. NO tenderness overlying shoulder, lateral/medial epicondyle. Visual Merchandising Director 5/5 and strength 5/5 bilateral UE. Elbow palpated, no tenderness overlying olecranon. Normal supination, pronation to active/passive ROM and to resisted rotation. Bicep insertion/tricep insertion appear normal without obvious pathology. Rotator cuff evaluated and intact. Normal wrist ROM bilaterally. Normal hand movement, intrinsic muscles of hands normal. No tenderness to palpation of hands/wrists/ elbows. Lower extremity- Hip: Not tender to palpation, no pain, no swelling, edema or erythema of surrounding tissue, normal strength and tone. Normal appearing hip ROM bilaterally without pain. Knee: Knee ROM normal. No tenderness overlying trochanters, + tenderness about medial patella on left, medial thigh on left. He has no pain in quad tendon, patellar tendon. No tenderness at tibial tuberosity. Ankle: normal ROM not tender on right. Left he has erythema of entire calf. Edema surrounding maleollus medial/laterally. He has skin pen marking from his mid thigh just below testicle down to the ankle medially and surrounding calf. I marked margins. Tender to palpation, hot to touch, erythematous, clear demarkation between healthy and inflamed tissues, mildly raised. E/O Erysipelas is present with systemic findings of fever/chills. Spine/Ribs- No deformities, masses or tenderness, no known fractures, normal strength, Normal ROM. Normal stability No tenderness along C/T/L spine. Normal appearing ROM about spine. Neurological: General- Moves all 4 extremities symmetrically. Symmetrical face and body posture. Cranial nerves- individually evaluated II-XII and intact. PERRLA, Normal EOMI, visual/special senses appear intact, Face is symmetrical and normal sensation/movement, normal tongue, normal strength/posture of neck musculature. Reflexes- intact with DTR 2+ patellar, Achilles, bicep, brachial, tricep. Ankle clonus normal with 2 beats. Strength- 5/5 bilateral UE and LE. Soft touch- intact bilateral UE and LE. Temperature sensation- intact bilateral UE and LE. Neuropsych: Oriented- Person, place, time. (AAOx3), Mood/affect- normal and congruent. Able to articulate well. Speech-Normal speech, normal rate, normal tone, normal use of language, volume and coherence. Thought content- normal with ability to perform basic computations and apply abstract thought/reason. Associations- intact, no SI/HI, no hallucinations, delusions, obsessions. Judgment/insight- Appropriate. Memory-Recall intact, remote and recent memory intact. Knowledge- Age appropriate fund of knowledge, concentration and attention span normal. Lymphatic: Head/Neck- normal size and non tender to palpation. Axillary- normal size and non tender to palpation. Femoral and Inguinal- No appreciable femoral/ inguinal LN> Lower Extremities: LLE re-evaluated at 22:33 and patient leg already looking better, reduced from edges of skin marking. External Genitalia: Normal scrotum bilaterally. NOrmal testicles, non tender to palpation, circumcised male. Nurse present during eval. - Lab/Tests/Diagnostic Imaging Lab/Tests/Diagnostic Imaging: Laboratory Last Values WBC 9.37 K/ul (4.2-10.2) 04/12/18 13:00 RBC 4.15 10^6/ul (4.70-6.10) L 04/12/18 13:00 Hgb 14.0 g/dl (14.0-18.0) 04/12/18 13:00 Hct 39.2 % (42.0-52.0) L 04/12/18 13:00 MCV 94.5 fl (80.0-94.0) H 04/12/18 13:00 MCH 33.7 pg (27.0-31.0) H 04/12/18 13:00 MCHC 35.7 (31.8-35.4) H 04/12/18 13:00 RDW Coeff of Joselin 14.0 % (11.6-14.8) 04/12/18 13:00 Plt Count 55 10^3/uL (140-440) L 04/12/18 13:00 Immature Gran % (Auto) 0.3 % (0.0-5.0) 04/12/18 13:00 Neut % (Auto) 89.5 04/12/18 13:00 Lymph % (Auto) 5.0 (10.0-50.0) L 04/12/18 13:00 [place] % (Auto) 5.1 (0-10) 04/12/18 13:00 Eos % (Auto) 0.0 % (0.0-7.0) 04/12/18 13:00 Baso % (Auto) 0.1 % (0.0-3.0) 04/12/18 13:00 Immature Gran # (Auto) 0.0 (0.0-1.0) 04/12/18 13:00 Neut # (Auto) 8.4 K/ul (2.0-6.9) H 04/12/18 13:00 Lymph # (Auto) 0.5 K/uL (0.60-3.4) L 04/12/18 13:00 [place] # (Auto) 0.5 K/uL (0.4-2.0) 04/12/18 13:00 Eos # (Auto) 0.0 K/ul (0.0-0.7) 04/12/18 13:00 Baso # (Auto) 0.0 K/uL (0-0.2) 04/12/18 13:00 ESR 10 mm/hr (0-15) 04/12/18 13:00 PT 12.9 SEC (9.3-11.0) H 04/12/18 13:00 INR 1.30 SI (0.0-3.9) 04/12/18 13:00 APTT 32.3 SEC (23.9-40.0) 04/12/18 13:00 Sodium 132.3 mmol/L (134.5-145) L 04/12/18 13:00 Potassium 3.74 mmol/L (3.5-5.1) 04/12/18 13:00 Chloride 101.8 mmol/L (98-107) 04/12/18 13:00 Carbon Dioxide 20.7 mmol/L (22-30.0) L 04/12/18 13:00 Anion Gap 13.54 04/12/18 13:00 BUN 13.5 mg/dL (9-20) 04/12/18 13:00 Creatinine 0.83 mg/dL (0.60-1.10) 04/12/18 13:00 Estimated GFR (MDRD) 98.00 mL/min 04/12/18 13:00 BUN/Creatinine Ratio 16.26 04/12/18 13:00 Glucose 130.4 mg/dL (74-106) H 04/12/18 13:00 Lactic Acid 1.49 mmol/L (0.7-2.1) 04/12/18 13:00 Calcium 8.61 mg/dL (8.4-10.2) 04/12/18 13:00 Total Bilirubin 5.43 mg/dL (0.2-1.3) H 04/12/18 13:00 AST 37.7 U/L (17-59) 04/12/18 13:00 ALT 26.8 U/L (0-50) 04/12/18 13:00 Alkaline Phosphatase 52.7 U/L (38-126) 04/12/18 13:00 Total Creatine Kinase 53.1 U/L (55-170) L 04/12/18 13:00 Troponin I < 0.012 ng/ml (0.0000-0.120) 04/12/18 13:00 Total Protein 6.61 g/dL (6.3-8.2) 04/12/18 13:00 Albumin 3.30 g/dL (3.5-5.0) L 04/12/18 13:00 Globulin 3.31 04/12/18 13:00 Albumin/Globulin Ratio 0.99 04/12/18 13:00 Procalcitonin 0.24 ng/mL (<0.05) 04/12/18 13:00 Urine Color Yellow (YELLOW) 04/12/18 13:50 Urine Clarity Clear (CLEAR) 04/12/18 13:50 Urine pH 6.0 (5-9) 04/12/18 13:50 Ur Specific Gaffney 1.015 (1.005-1.030) 04/12/18 13:50 Urine Protein Negative (NEGATIVE) 04/12/18 13:50 Urine Glucose (UA) Negative (NEGATIVE) 04/12/18 13:50 Urine Ketones Trace (NEGATIVE) 04/12/18 13:50 Urine Blood Negative (NEGATIVE) 04/12/18 13:50 Urine Nitrite Positive (NEGATIVE) 04/12/18 13:50 Urine Bilirubin 1+ (NEGATIVE) 04/12/18 13:50 Urine Urobilinogen 1.0 (0.2) 04/12/18 13:50 Ur Leukocyte Esterase Negative (NEGATIVE) 04/12/18 13:50 Urine Microscopic WBC 2-5 (0-2) 04/12/18 13:50 Ur Squamous Epith Cells 0-2 (0-5) 04/12/18 13:50 Urine Bacteria Trace (NOT PRESENT) 04/12/18 13:50 Influ A Molecular Assay Negative by naat (NEGATIVE) 04/12/18 16:20 Influ B Molecular Assay Negative by naat (NEGATIVE) 04/12/18 16:20 Chest X-ray: No acute pulmonary disease. No consolidation or effusion. - Assessment (1) Erysipelas Status: Acute Code(s): A46 - ERYSIPELAS SNOMED Code(s): 12134995 (2) Cellulitis of left leg Status: Acute Code(s): L03.116 - CELLULITIS OF LEFT LOWER LIMB SNOMED Code(s ): 658572139 (3) Thrombocytopenia Status: Acute Code(s): D69.6 - THROMBOCYTOPENIA, UNSPECIFIED SNOMED Code(s) : 039757557 (4) Gastroenteritis Status: Acute Code(s): K52.9 - NONINFECTIVE GASTROENTERITIS AND COLITIS, UNSPECIFIED SNOMED Code(s): 51793697 (5) Heart murmur Status: Acute Code(s): R01.1 - CARDIAC MURMUR, UNSPECIFIED SNOMED Code(s): 92143057 (6) Asthma Status: Acute Code(s): J45.909 - UNSPECIFIED ASTHMA, UNCOMPLICATED SNOMED Code(s): 156501960 (7) Cryptogenic cirrhosis of liver Status: Acute Code(s): K74.69 - OTHER CIRRHOSIS OF LIVER SNOMED Code(s): 16931054 - Plan Plan: Cellulitis/ERysipelas/Vasculitis (VALADEZ) ANCA ordered: The patient has relatively sudden onset of symptoms with edema, erythema, pain along the LLE. Does not report expanding, it seemed to appear all at once and he has no other lesions anywhere but this leg. IT has happened before on other leg. WE reviewed ddx to include necrotizing fasciits (no pain outside of proportion to exam) and toxic shock syndrome (no sloughing of skin at present, no ecchymosis but fever is common, BP was up but now normal), talked about erythema migrans but no history of tick bites, contact dermatitis, drug reaction (no trunk involvement and this involved distal extremities), vasculitis, Montes-Hindu panniculitis can have inflammation along thighs instead of distally. The location of patient erythematous process can be seen seen in VALADEZ, kathy, churg-deborah, does not appear to be HSP and also does not appear to have hypersensitivity vasculitis. Stasis dermatitis less likely. I will treat with vanco IV overnight, PO clindamycin, IV rocephin. Skin pen/sherif the area of concern. We will check labs. ANCA ordered, ESR/CRP ordered, this will help to navigate the ddx. With fever, I will check CXR as well (NEGATIVE). HE has murmur, I will check echo to make sure no vegetations. - Admit to hospital inpatient, IV abx. - IV Vanco overnight - PO clinda 300 Q 6 hours pRN - Macrolide allergy should not cross react. - CXR - CBC/CMP/ESR/CRP/KIARA/ANCA ordered. - Vanco trough - 2 D Echo - US LLE. Fever: Monitor overnight. - CXR - Tylenol 500 TID - NO NSAIDS> Asthma: Albuterol nebs q 4 hours. Cirrhosis: Chronic process. - PT/PTT/INR ordered Chronic thrombocytopenia: Monitor CBC. - CBC in am. DVT prophy: - Lovenox 40mg subcut daily. Diet: Regular Activity: REgular. Disposition: We will keep patient likely 2-3 days based on complaint. Make sure abx are helping skin process to improve, consider d/c home with PO clindamycin if he continues to improve in next few days. Today we spent 70 minutes on this admission. Talked with ER directly, reviewed imaging, labs, heart monitor. Talked with patient, evaluated patient and we discussed plan of care as above. Inpatient status, sudden onset of erythematous rash involving 90 % of LLE with significant fever warranted more than outpatient abx. Will see patient again in am. Echo/US LE ordered tomorrow.
[2018-04-12] MEDS ORDERED: ROCEPHIN ONE (17:42)
[2018-04-12] MEDS ORDERED: SODIUM CHLORIDE 250 ML IV ONE (17:50)
[2018-04-12] MEDS ORDERED: ALBUTEROL 0.083% NEB NEB SCH (18:00)
[2018-04-12] MEDS: DUONEB NEB SCH ×2 (18:07→23:20)
[2018-04-12] MEDS: CLEOCIN PO SCH ×2 (18:30→23:22)
[2018-04-12] MEDS: SODIUM CHLORIDE 1,000 ML IV SCH (18:32)
[2018-04-12] MEDS ORDERED: SODIUM CHLORIDE 50 ML IV ONE (18:34)
[2018-04-12] MEDS: LOVENOX SUBCUT SCH (18:35)
[2018-04-12] MEDS: ACTIGALL PO SCH (20:10)
[2018-04-12] MEDS: OXYCODONE PO PRN (20:18)
[2018-04-13] MEDS: DUONEB NEB SCH ×4 (05:10→23:25)
[2018-04-13] MEDS: CLEOCIN PO SCH ×4 (05:42→23:28)
[2018-04-13] MEDS: OXYCODONE PO PRN ×2 (05:47→17:09)
[2018-04-13] MEDS ORDERED: LASIX TAB PO PRN (06:32)
[2018-04-13] MEDS ORDERED: ZANAFLEX PO PRN (06:37)
--- NOTE | 2018-04-13 07:24 | PCM.PROG ---
Subjective: 53 yo CM HD #2 admitted with LLE cellulitis vs vasculitis, chronic thromboyctopenia, fever. Labs this am look stable to improved. WBC now 7.49 down from 9.37, hgb 13.7 down from 14, HCT 39.2 and plt stable at 54 (down from 55). Thrombocytopenia chronically/stable overall. CMP this am showed sodium 135.7, K+ 4.29, CL 105.3, BUN 16.6 and Cr 0.86 glucose 106. Calcium looked low at 8.36 but corrected to 9.0. ESR of 10 suggests that the vasculitides are less likely but does not rule out any of the ddx that we have discussed. Urine culture so far negative. He is a full code. Patient, just like admit, experienced exp wheezing, intermittent cough, no SOA, no GOODEN, no chest pain, + Nausea, negative vomiting/diarrhea, negative abdominal pain. He has pain in his left leg ranging from 0-10. Oxycodon 5mg given 20:21 and by 22:31 resting pain controlled per nursing. THis am at 05:50 pain again 9/10 and given another oxycodone. Vitals reviewed overnight adn he had temp up to 103 last night 04/12/18 and BP elevated at 152/163. This am afebrile temp 97.5, BP 119/ 60. Telemetry reviewed report and computer and SR. He has had had #4 voids. The patient is feeling better this am. Talked with [facility] nursing, talked with patient. Pain fluctuates, controlled with pain meds. Nausea persists, mild wheezing persists. I want to hold on steroids for now, he agreed. Skin pen markings evaluated and e/o erysipelas are improving. Upon entry this am shaving in bathroom. Ambulatory. OOB already today. Pain better at 3-4/10 per patient. He is happy with progress. IV Site left AC NS 75ml/hour running ABX: Vancomycin Day 2 today, PO clindamycin, Rocephin dose 1 in ER will be continue all abx today. Plan D/C IV tomorrow if remains fever free today. Pain control: Oxycodone 5mg daily. REVIEW OF SYMPTOMS: (Positives bolded) General: weight loss, fever, chills, night sweats, fatigue, appetite loss HEENT: blurry vision, eye pain, eye discharge, dry eyes, decreased vision, sore throat tinnitus, bloody nose, hearing loss, sinus pain/pressure, ear pain/ pressure. Respiratory: shortness of breath, cough, hemoptysis, wheezing, pleurisy, Cardiovascular: chest pain, PND, palpitation, edema, orthopnea, syncope, swelling of extremities Gastro: Nausea, vomiting, diarrhea, hematemesis, abdominal pain, constipation ( VOMITING/DIARRHEA RESOLVED) Genito: hematuria, dysuria, glycosuria, hesitancy, frequency, incontinence [place]: Arthralgia, myalgia, muscle weakness, joint swelling, NSAID use Skin: rash, pruritis, sores, nail changes, skin thickening, change in wart/mole , new lesions, pruritus, nail changes Neuro: Migraine, numbness, ataxia, tremor, vertigo, weakness, memory loss, Irritability, dizziness Endocrine: excessive thirst, polyuria, cold intolerance, heat intolerance, goiter Psychiatric: depression, anxiety, anti-depressants, alcohol abuse, drug abuse, insomnia, change in sleep pattern and mood changes Heme/lymph: easy bruising, bleeding gums, blood clots, swollen glands, lymphedema, Allergic/immune: allergic rhinitis, hay fever, asthma, hives Objective: Vital Signs - 24 hr 04/12/18 04/12/18 04/12/18 12:28 18:13 19:15 Temperature 103.0 F H 100.7 F H Pulse Rate 91 H 77 Respiratory 20 18 18 Rate Blood Pressure 152/63 H O2 Sat by Pulse 95 96 Oximetry 04/12/18 04/12/18 04/13/18 22:00 22:34 05:32 Temperature 100.1 F H 103.0 F H 97.5 F L Pulse Rate 77 91 H 60 Respiratory 18 20 20 Rate Blood Pressure 120/56 L 152/63 H 119/60 O2 Sat by Pulse 96 95 95 Oximetry Constitutional: Appearance-No acute distress, Consistent with stated age. Orientation- Oriented x 3, alert Gait-Normal pace, normal arm movement. Build and Nutrition-Overweight, BMI 28.5. General- Patient is pleasant and cooperative with the interview and exam. Feeling better, shaving face upon entry, pain is better controlled. Integumentary: General-No rashes, ulcers or lesions except LLE. Palpation- Normal skin moisture/turgor. Skin is warm to touch, appropriate. Capillary refill is normal bilateral Upper and lower extremity. RASH: Cellulitis/ erysipelas LLE involving most of tissue below left hip/inguinal ligament. Color is less red along medial thigh and improving. The patient still has erythematous, edematous tissues about the herman anterior/posterior/medial. Erythema is constricting within pen markings. Remains spared along lateral thigh and entire foot. ENMT: Nose and sinus- No sinus tenderness along frontal/maxillary region. External appearance normal and midline. Nares- bilateral quiet airflow, no discharge. Nasal mucosa- No bleeding noted and no ulcerations observed. [place], moist. Turbinates non boggy. Lips- normal color, moist without cracks/lesions Oral Cavity/Palate- hard/soft palate intact without lesions, oral mucosa pink and moist. Oropharynx- no pharyngeal erythema, Uvula midline. No post nasal drip. No exudate. Salivary glands- Non tender to palpation CHEST/LUNG: Inspection- symmetric chest wall no pectus deformity. Normal effort , no distress, no use of accessory muscles. Palpation- nontender sternum, ribline. No abnormal pulsations. Auscultation- Breath sounds much more clear today. Coarse sounds throughout all lung ferrell, tracheal sounds, bronchial sounds overlying sternum, Bronchovessicular sounds between scapulae posteriorly , vessicular breath sounds heard throughout periphery. Lungs are clear today. Adventitious sounds- Much less adventitious sounds heard today. He still has scattered wheezes, rhonchi but no rales. Stable/improving pulmonary sounds. CARDIOVASCULAR: Palpation/Percussion- Normal PMI, no palpable thrill Auscultation- Regular rate and rhythm. III/ systolic murmur noted in sitting and supine positions. Did not radiate into axilla or carotid. Extremities- no digital clubbing, cyanosis, edema, increased warmth. ABDOMEN: Inspection- normal and no visible pulsations. Normal contour. Auscultation- Bowel sounds normal, no abdominal bruits. Palpation/Percussion- soft, non-tender, no rebound tenderness, no rigidity (guarding), no jar tenderness, no masses. Liver-hepatomegaly, Spleen no splenomegaly, Hernias- none. Rectal not examined. Peripheral Vascular: Upper extremity Left- Normal temperature with pink nailbeds and no ulcerations. Upper extremity Right- Normal temperature with pink nailbeds and no ulcerations. Lower extremity- Normal temperature right with pink nailbeds and no ulcerations. DP pulses 2+ bilaterally. Pedal hair intact. Normal capillary refill. Edema- No edema. LLE: Please see integument and MSK exam. Musculoskeletal: Generalized-No generalized swelling or edema of extremities, no digital clubbing or cyanosis, neurovascularly intact all four extremities. Lower extremity- Hip: Not tender to palpation, no pain, no swelling, edema or erythema of surrounding tissue, normal strength and tone. Normal appearing hip ROM bilaterally without pain. Knee: Knee ROM normal. No tenderness overlying trochanters, + tenderness about medial patella on left, medial thigh on left. He has no pain in quad tendon, patellar tendon. No tenderness at tibial tuberosity. Ankle: normal ROM not tender on right. Left he has erythema of entire calf. Edema surrounding maleollus medial/laterally. He has skin pen marking from his mid thigh just below testicle down to the ankle medially and surrounding calf. I marked margins in ER. Tender to palpation, hot to touch, erythematous, clear demarkation between healthy and inflamed tissues, mildly raised. E/O Erysipelas is present with systemic findings of fever/chills. This is improving/constricting. Spine/Ribs- Normal stability No tenderness along C/T/L spine. Normal appearing ROM about spine. Neurological: General- Moves all 4 extremities symmetrically. Symmetrical face and body posture. Cranial nerves- individually evaluated II-XII and intact. PERRLA, Normal EOMI, visual/special senses appear intact, Face is symmetrical and normal sensation/movement, normal tongue, normal strength/posture of neck musculature. Reflexes- intact with DTR 2+ patellar, Achilles, Strength- 5/5 bilateral LE. Soft touch- intact bilateral LE. Temperature sensation- intact bilateral LE. Neuropsych: Oriented- Person, place, time. (AAOx3), Mood/affect- normal and congruent. Able to articulate well. Speech-Normal speech, normal rate, normal tone, normal use of language, volume and coherence. Thought content- normal with ability to perform basic computations and apply abstract thought/reason. Associations- intact, no SI/HI, no hallucinations, delusions, obsessions. Judgment/insight- Appropriate. Memory-Recall intact, remote and recent memory intact. Knowledge- Age appropriate fund of knowledge, concentration and attention span normal. Lymphatic: Femoral and Inguinal- No appreciable femoral/inguinal LN> Laboratory Last Values WBC 7.49 K/ul (4.2-10.2) 04/13/18 04:45 RBC 4.09 10^6/ul (4.70-6.10) L 04/13/18 04:45 Hgb 13.7 g/dl (14.0-18.0) L 04/13/18 04:45 Hct 39.2 % (42.0-52.0) L 04/13/18 04:45 MCV 95.8 fl (80.0-94.0) H 04/13/18 04:45 MCH 33.5 pg (27.0-31.0) H 04/13/18 04:45 MCHC 34.9 (31.8-35.4) 04/13/18 04:45 RDW Coeff of Joselin 14.2 % (11.6-14.8) 04/13/18 04:45 Plt Count 54 10^3/uL (140-440) L 04/13/18 04:45 Immature Gran % (Auto) 0.3 % (0.0-5.0) 04/13/18 04:45 Neut % (Auto) 81.1 04/13/18 04:45 Lymph % (Auto) 8.9 (10.0-50.0) L 04/13/18 04:45 [place] % (Auto) 8.9 (0-10) 04/13/18 04:45 Eos % (Auto) 0.7 % (0.0-7.0) 04/13/18 04:45 Baso % (Auto) 0.1 % (0.0-3.0) 04/13/18 04:45 Immature Gran # (Auto) 0.0 (0.0-1.0) 04/13/18 04:45 Neut # (Auto) 6.1 K/ul (2.0-6.9) 04/13/18 04:45 Lymph # (Auto) 0.7 K/uL (0.60-3.4) 04/13/18 04:45 [place] # (Auto) 0.7 K/uL (0.4-2.0) 04/13/18 04:45 Eos # (Auto) 0.1 K/ul (0.0-0.7) 04/13/18 04:45 Baso # (Auto) 0.0 K/uL (0-0.2) 04/13/18 04:45 ESR 10 mm/hr (0-15) 04/12/18 13:00 PT 12.9 SEC (9.3-11.0) H 04/12/18 13:00 INR 1.30 SI (0.0-3.9) 04/12/18 13:00 APTT 32.3 SEC (23.9-40.0) 04/12/18 13:00 Sodium 135.7 mmol/L (134.5-145) 04/13/18 04:45 Potassium 4.29 mmol/L (3.5-5.1) 04/13/18 04:45 Chloride 103.3 mmol/L (98-107) 04/13/18 04:45 Carbon Dioxide 23.7 mmol/L (22-30.0) 04/13/18 04:45 Anion Gap 12.99 04/13/18 04:45 BUN 16.6 mg/dL (9-20) 04/13/18 04:45 Creatinine 0.86 mg/dL (0.60-1.10) 04/13/18 04:45 Estimated GFR (MDRD) 94.00 mL/min 04/13/18 04:45 BUN/Creatinine Ratio 19.30 04/13/18 04:45 Glucose 106.0 mg/dL (74-106) 04/13/18 04:45 Lactic Acid 1.49 mmol/L (0.7-2.1) 04/12/18 13:00 Calcium 8.36 mg/dL (8.4-10.2) L 04/13/18 04:45 Total Bilirubin 5.57 mg/dL (0.2-1.3) H 04/13/18 04:45 AST 29.9 U/L (17-59) 04/13/18 04:45 ALT 22.2 U/L (0-50) 04/13/18 04:45 Alkaline Phosphatase 48.3 U/L (38-126) 04/13/18 04:45 Total Creatine Kinase 53.1 U/L (55-170) L 04/12/18 13:00 Troponin I < 0.012 ng/ml (0.0000-0.120) 04/12/18 13:00 Total Protein 6.32 g/dL (6.3-8.2) 04/13/18 04:45 Albumin 3.14 g/dL (3.5-5.0) L 04/13/18 04:45 Globulin 3.18 04/13/18 04:45 Albumin/Globulin Ratio 0.98 04/13/18 04:45 Procalcitonin 0.24 ng/mL (<0.05) 04/12/18 13:00 Urine Color Yellow (YELLOW) 04/12/18 13:50 Urine Clarity Clear (CLEAR) 04/12/18 13:50 Urine pH 6.0 (5-9) 04/12/18 13:50 Ur Specific [place] 1.015 (1.005-1.030) 04/12/18 13:50 Urine Protein Negative (NEGATIVE) 04/12/18 13:50 Urine Glucose (UA) Negative (NEGATIVE) 04/12/18 13:50 Urine Ketones Trace (NEGATIVE) 04/12/18 13:50 Urine Blood Negative (NEGATIVE) 04/12/18 13:50 Urine Nitrite Positive (NEGATIVE) 04/12/18 13:50 Urine Bilirubin 1+ (NEGATIVE) 04/12/18 13:50 Urine Urobilinogen 1.0 (0.2) 04/12/18 13:50 Ur Leukocyte Esterase Negative (NEGATIVE) 04/12/18 13:50 Urine Microscopic WBC 2-5 (0-2) 04/12/18 13:50 Ur Squamous Epith Cells 0-2 (0-5) 04/12/18 13:50 Urine Bacteria Trace (NOT PRESENT) 04/12/18 13:50 Influ A Molecular Assay Negative by naat (NEGATIVE) 04/12/18 16:20 Influ B Molecular Assay Negative by naat (NEGATIVE) 04/12/18 16:20 (1) Cellulitis of left leg Status: Acute Code(s): L03.116 - CELLULITIS OF LEFT LOWER LIMB SNOMED Code(s ): 175463066 (2) Thrombocytopenia Status: Acute Code(s): D69.6 - THROMBOCYTOPENIA, UNSPECIFIED SNOMED Code(s) : 581371556 (3) Gastroenteritis Status: Acute Code(s): K52.9 - NONINFECTIVE GASTROENTERITIS AND COLITIS, UNSPECIFIED SNOMED Code(s): 38690911 (4) Heart murmur Status: Acute Code(s): R01.1 - CARDIAC MURMUR, UNSPECIFIED SNOMED Code(s): 38363295 (5) Asthma Status: Acute Code(s): J45.909 - UNSPECIFIED ASTHMA, UNCOMPLICATED SNOMED Code(s): 813481359 (6) Cryptogenic cirrhosis of liver Status: Acute Code(s): K74.69 - OTHER CIRRHOSIS OF LIVER SNOMED Code(s): 91610709 Plan: Cellulitis/Erysipelas/Vasculitis: Many of the labs I ordered are pending for vasculitis. He has no area that is drainable. Rash is constricting and showing e/o improvement. He feels better, ambulating, shaving upon entry. Thigh markings are constricting, herman /distal LE erythema is constricting. Still some edema about the ankle but much better. Pain remains a problem, controlled with oxycodone PO. I believe 1 more day of IV abx should be adequate and then change to PO and see how he does. He agrees with plan. He is happy with progress. We will talk with pharmacy about monitoring the vancomycin. - Continue Vancomycin, Continue PO clinda and IV rocephin today - Plan D/C IV tomorrow if fever free 24 hours, continue clindamycin and possible home 04/14 vs 04/15 if improving and remains afebrile. - Consider d/c tomorrow on clindamycin. - US today - Echo 2D today - Await vasculitis labs (ESR normal). Asthma: Wheezing, nebs ordered. CXR was negative in ER. His lungs sound much clearer this am. He is breathing more comfortably and feels overall better. - Continue nebs q 4 hours pRN - Continue to hold steroids. Heart murmur: Erysipelas, negative sepsis markers. Should get 2 D echo today. - Await results of 2D Echo Chronic thrombocytopenia: Plt stable at this time, no major drops with fluids or lovenox. Will continue to monitor. Cirrhosis: Mild elevation of PT, normal PTT and INR mildly elevated. Not on coumadin. Chronic process. Monitor. Diet: Regular Activity: Regular DVT Prophy: Lovenox - COntinue lovenox 40mg daily. Disposition: Left lower extremity looks much better. Edema/erythema have constricted within skin pen marking and now have more of a mottled/violaceous appearance, which is positive. Calf still has some erythema but not worsening. Continue IV abx today, po abx today, await echo, await US of MICHELLE. We will consider d/c IV abx tomorrow if he remains fever free today and skin continues to improve. He notes pain is better even though 2 doses of oxycodone. Vitals are better, nursing noted improvement and he was up shaving when I walked into room. Conversant, pleasant and pleased with the improvement even in last 12 hours. Plan to d/c patient 04/14-04/15/18 based on improvement. He agreed with plan. 35 minutes spent on rounding today. REviewed new labs, awaiting echo/US of MICHELLE. Telemetry reviewed. He is on drug therapy with toxicity monitoring for the vancomycin. Patient and I discussed cause for this process, discussed at present it is not known. Staph/Strep bacteria, consider MRSA, consider vascular inflammatory process.
[2018-04-13] MEDS ORDERED: NYSTOP POWDER TP PRN (07:30)
[2018-04-13] MEDS ORDERED: XANAX PO PRN (08:10)
[2018-04-13] MEDS: ROCEPHIN 1 GM in SODIUM CHLORIDE 50 ML IV SCH (09:10)
[2018-04-13] MEDS: ACTIGALL PO SCH ×2 (09:13→21:20)
[2018-04-13] MEDS: LACTULOSE PO SCH (09:14)
[2018-04-13] MEDS: MILK THISTLE 500 MG PO SCH (09:15)
[2018-04-13] MEDS: LOVENOX SUBCUT SCH (09:15)
[2018-04-13] MEDS: NYSTATIN CREAM TP SCH ×4 (09:18→23:05)
[2018-04-13] MEDS: VANCOMYCIN 1 GM in SODIUM CHLORIDE 250 ML IV SCH ×2 (10:16→21:19)
[2018-04-13] MEDS: SODIUM CHLORIDE 1,000 ML IV SCH ×2 (13:17→23:26)
[2018-04-14] MEDS: CLEOCIN PO SCH (05:32)
[2018-04-14] MEDS: DUONEB NEB SCH ×2 (05:33→11:19)
--- NOTE | 2018-04-14 07:40 | PCM.PROG ---
Subjective: 53 yo CM HD #3 admitted with LLE cellulitis vs vasculitis, chronic thromboyctopenia, fever. Labs this am continue to look stable and are improved. WBC now 5.47 down from 7.49, hgb 13.1 down from 13.7, plt improved to 66 from 54. Thrombocytopenia chronically/stable actually better now than expected. CMP this am showed sodium 139.3, K+ 3.77, CL 105.1, BUN 15.7 and Cr 0.84. CRP elevated. Calcium looked low at 8.26 but corrected again to 9.0. ESR of 10 yesterday. Again this suggests that the vasculitides are less likely.C ANCA, PANCA anti myeloperoxidase pending at this time. Blood and Urine cultures so far negative. He remains a full code. Exp wheezing improving, no SOA, mild dry intermittent cough improving. Still w/o GOODEN, no chest pain, now w/ o Nausea, negative vomiting/diarrhea, negative abdominal pain. Pain up and down in his left leg, controlled with oxycodone 5mg. Vitals reviewed overnight and he was afebrile, BP controlled. Weight appears up 10 lb and he noted that he had his appetite again, felt great compared to when this started. This am I checked on him at 07:00. He has been afebrile 24 hours temp 97.5, BP 119/60. Telemetry reviewed report and computer and SR and some 1st degree AV block. He has had 2 BM 04/13/18, Echocardiogram completed yesterday. US of LE to be completed today. He is up, showering, ambulating. Erythema persists on his leg but this is now mostly localized to the calf. Talked with [facility] nursing, talked with patient. Pain fluctuates, controlled with pain meds. Nausea resolved , mild wheezing persists. I want to wait for immunology labs, which are pending.Skin pen markings evaluated and e/o erysipelas are improving. Upon entry this am awake, supine in bed watching TV. Ambulatory. OOB already today. Pain better now at 3-4/10 per patient. He is happy with progress. Plan for d/c tomorrow w/ oral abx. We will stop vanco/rocephin today. I will treat with Augmentin plus Doxycycline per recommendations. Clindamycin can increase risks for C. Diff. Cardiopulmonary contacted this am. NOrmal valves, normal LV contraction, no e/o vegetation. IV Site left AC NS 75ml/hour running ABX: Vancomycin Day to d/c today. D/C PO clindamycin, Rocephin 1 more dose today. Plan D/C IV today and if tolerating PO meds today and US of leg looks okay maybe d/c this pm or tomorrow am if fever free today. Pain control: Oxycodone 5mg daily. REVIEW OF SYMPTOMS: (Positives bolded) General: weight loss, fever, chills, night sweats, fatigue, appetite loss HEENT: blurry vision, eye pain, eye discharge, dry eyes, decreased vision, sore throat tinnitus, bloody nose, hearing loss, sinus pain/pressure, ear pain/ pressure. Respiratory: shortness of breath (RESOLVING/BETTER), cough, hemoptysis, wheezing , pleurisy, Cardiovascular: chest pain, PND, palpitation, edema, orthopnea, syncope, swelling of extremities Gastro: Nausea (RESOLVED), vomiting, diarrhea, hematemesis, abdominal pain, constipation (VOMITING/DIARRHEA RESOLVED) Genito: hematuria, dysuria, glycosuria, hesitancy, frequency, incontinence [place]: Arthralgia, myalgia, muscle weakness, joint swelling, NSAID use Skin: rash, pruritis, sores, nail changes, skin thickening, change in wart/mole , new lesions, pruritus, nail changes Neuro: Migraine, numbness, ataxia, tremor, vertigo, weakness, memory loss, Irritability, dizziness Endocrine: excessive thirst, polyuria, cold intolerance, heat intolerance, goiter Psychiatric: depression, anxiety, anti-depressants, alcohol abuse, drug abuse, insomnia, change in sleep pattern and mood changes Heme/lymph: easy bruising, bleeding gums, blood clots, swollen glands, lymphedema, Allergic/immune: allergic rhinitis, hay fever, asthma, hives Objective: Vital Signs - 24 hr 04/13/18 04/13/18 04/14/18 14:00 22:00 05:45 Temperature 98.9 F 99.5 F 98.8 F Pulse Rate 68 61 75 Respiratory 20 18 18 Rate Blood Pressure 106/49 L 118/60 110/58 L O2 Sat by Pulse 97 98 Oximetry Constitutional: Appearance-No acute distress, supine on entry Orientation- Oriented x 3, alert Gait-Normal pace, normal arm movement. Build and Nutrition- Overweight, BMI 28.5. General- Patient is pleasant and cooperative with the interview and exam. Feeling better. Integumentary: Capillary refill is normal bilateral Upper and lower extremity. RASH: Cellulitis/erysipelas LLE involving most of tissue below left hip/ inguinal ligament. Color is less red along medial thigh and continues to improve. Calf is still erythematous prominently. Still edema about the ankle. Recommended to elevate leg. The patient still has erythematous, edematous tissues about the herman anterior/posterior/medial calf. Erythema continues to constrict within pen markings. Remains spared along lateral thigh and entire foot. ENMT: Nose and sinus- No sinus tenderness along frontal/maxillary region. External appearance normal and midline. Nares- bilateral quiet airflow, no discharge. Nasal mucosa- No bleeding noted and no ulcerations observed. [place], moist. Turbinates non boggy. Lips- normal color, moist without cracks/lesions Oral Cavity/Palate- hard/soft palate intact without lesions, oral mucosa pink and moist. Oropharynx- no pharyngeal erythema, Uvula midline. No post nasal drip. No exudate. Salivary glands- Non tender to palpation CHEST/LUNG: Auscultation- Breath sounds much more clear today. Coarse sounds throughout all lung ferrell, tracheal sounds, bronchial sounds overlying sternum , Bronchovessicular sounds between scapulae posteriorly, vessicular breath sounds heard throughout periphery. Lungs are much more clear today. Adventitious sounds- Much less adventitious sounds heard today. He still has scattered wheezes, rhonchi but no rales. Stable/improving pulmonary sounds. CARDIOVASCULAR: Palpation/Percussion- Normal PMI, no palpable thrill Auscultation- Regular rate and rhythm. III/ systolic murmur noted in sitting and supine positions. Did not radiate into axilla or carotid. Extremities- no digital clubbing, cyanosis, edema, increased warmth. ABDOMEN: Inspection- normal and no visible pulsations. Normal contour. Auscultation- Bowel sounds normal, no abdominal bruits. Palpation/Percussion- soft, non-tender, no rebound tenderness, no rigidity (guarding), no jar tenderness, no masses. Liver-hepatomegaly, Peripheral Vascular: DP and PT pulses 2+ bilaterally. Cap refill normal bilateral feet. Musculoskeletal: Lower extremity- Hip: Not tender to palpation, no pain, no swelling, edema or erythema of surrounding tissue, normal strength and tone. Normal appearing hip ROM bilaterally without pain. Knee: Knee ROM normal. No tenderness overlying trochanters, Now without tenderness about medial patella on left, medial thigh on left. More violaceous and less erythematous. He has no pain in quad tendon , patellar tendon regions. No tenderness at tibial tuberosity. Ankle: Left he has erythema of entire calf that is a little better than initial and within skin pen markings. Edema surrounding maleollus medial/laterally. He has skin pen marking from his mid thigh just below testicle down to the ankle medially and surrounding calf. I marked margins in ER. Tender to palpation, improving , less hot to touch, erythematous, clear demarcation between healthy and inflamed tissues, mildly raised. E/O Erysipelas is present with systemic findings of fever/chills. Systemic findings are gone. This is improving/ constricting. Neurological: General- Moves all 4 extremities symmetrically. Symmetrical face and body posture. Neuropsych: Oriented- Person, place, time. (AAOx3), Mood/affect- normal and congruent. Able to articulate well. Speech-Normal speech, normal rate, normal tone, normal use of language, volume and coherence. Thought content- normal with ability to perform basic computations and apply abstract thought/reason. Associations- intact, no SI/HI, no hallucinations, delusions, obsessions. Judgment/insight- Appropriate. Memory-Recall intact, remote and recent memory intact. Knowledge- Age appropriate fund of knowledge, concentration and attention span normal. Lymphatic: Femoral and Inguinal- No appreciable femoral/inguinal LN> Laboratory Results - last 24 hr 04/12/18 04/14/18 04/14/18 13:00 04:35 04:35 WBC 5.47 RBC 3.85 L Hgb 13.1 L Hct 37.3 L MCV 96.9 H MCH 34.0 H MCHC 35.1 RDW Coeff of Joselin 14.1 Plt Count 66 L Immature Gran % (Auto) 0.5 Neut % (Auto) 71.3 Lymph % (Auto) 15.2 [place] % (Auto) 9.1 Eos % (Auto) 3.7 Baso % (Auto) 0.2 Immature Gran # (Auto) 0.0 Neut # (Auto) 3.9 Lymph # (Auto) 0.8 [place] # (Auto) 0.5 Eos # (Auto) 0.2 Baso # (Auto) 0.0 Sodium 139.3 Potassium 3.77 Chloride 105.1 Carbon Dioxide 26.8 Anion Gap 11.17 BUN 15.7 Creatinine 0.84 Estimated GFR (MDRD) 96.00 BUN/Creatinine Ratio 18.69 Glucose 90.1 Calcium 8.26 L Total Bilirubin 3.63 H D AST 34.6 ALT 21.9 Alkaline Phosphatase 50.3 C-Reactive Prot, Quant 73.4 H Total Protein 6.24 L Albumin 3.10 L Globulin 3.14 Albumin/Globulin Ratio 0.98 Echocardiogram Pending Blood culture negative Urine culture negative. (1) Erysipelas Status: Acute Code(s): A46 - ERYSIPELAS SNOMED Code(s): 69643427 (2) Cellulitis of left leg Status: Acute Code(s): L03.116 - CELLULITIS OF LEFT LOWER LIMB SNOMED Code(s ): 618371782 (3) Thrombocytopenia Status: Acute Code(s): D69.6 - THROMBOCYTOPENIA, UNSPECIFIED SNOMED Code(s) : 805614971 (4) Gastroenteritis Status: Acute Code(s): K52.9 - NONINFECTIVE GASTROENTERITIS AND COLITIS, UNSPECIFIED SNOMED Code(s): 08888830 (5) Heart murmur Status: Acute Code(s): R01.1 - CARDIAC MURMUR, UNSPECIFIED SNOMED Code(s): 35359381 (6) Asthma Status: Acute Code(s): J45.909 - UNSPECIFIED ASTHMA, UNCOMPLICATED SNOMED Code(s): 975327042 (7) Cryptogenic cirrhosis of liver Status: Acute Code(s): K74.69 - OTHER CIRRHOSIS OF LIVER SNOMED Code(s): 54283269 Plan: Cellulitis/Erysipelas/Vasculitis: Many of the labs I ordered remain pending for vasculitis. ESR normal CRP markedly elevated. CBC/CMP are stable. Still awaiting ANCA/Myeloperoxidase and US of leg. He has no area that is drainable. Rash is constricting and showing e/o improvement. He feels better, ambulating, showering, less edema, less erythema, return of appetite. Thigh markings continue to constrict, calf/distal LE erythema is constricting. There was question for this admit whether he could have tolerated PO. With his rapid onset erythema, fever/chills and suspicion for erysipelas the patient needed admit inpatient with IV abx. He has steadily improved, afebrile 24 hours. We will switch him to oral abx today doxy plus augmentin and monitor today for an s /sx of worsening. Echo no vegetation. Pain remains a problem, chronic problem , but controlled with oxycodone PO. Plan to d/c this pm vs tomorrow am. He agrees with plan. He is happy with progress. - D/C Vancomycin, PO clinda and IV rocephin today - Change to PO Doxy 100 BID x 7 days and Augmentin 875/125 PO BID x 7 days. - Plan D/C tomorrow - US ordered, will get done today - Echo 2D yesterday negative. - Await vasculitis labs (ESR normal, CRP MARKEDLY ELEVATED). Asthma: Wheezing, nebs ordered. Stable, doing okay. CXR was negative in ER. BC negative in hospital. His lungs sound much clearer this am. He is breathing more comfortably and feels overall better. - Continue nebs q 4 hours pRN - No steroids for now Heart murmur: Erysipelas, negative sepsis markers. Echo negative. - Monitor Chronic thrombocytopenia: Plt stable to improved at this time, no major drops with fluids or lovenox. Will continue to monitor. Cirrhosis: Mild elevation of PT, normal PTT and INR mildly elevated. Not on coumadin. Chronic process. Monitor. Diet: Regular Activity: Regular DVT Prophy: Lovenox - Continue lovenox 40mg daily. Disposition: Left lower extremity continues to improve. Contacted and discussed echo with Dr. Ceja, cardiology staff this am, reviewed labs, reviewed telemetry. Edema/erythema have constricted within skin pen marking and now have more of a mottled/violaceous appearance, which is positive. Calf remains involved and problematic. Stop IV abx today, po abx to start today, await US LE. Fever free last 24 hours and skin continues to improve. He notes pain is better even though using oxycodone. Vitals are stable/improved, nursing noted improvement and he has been ambulatory. Recommended to him to have leg elevated. Remains conversant, pleasant and pleased with the improvement in last 24 hours. Plan to d/c patient either pm today 04/14 vs am tomorrow 04/15/18. He agreed with plan. 35 minutes spent on rounding on patient again today. Reviewed new labs, contacted and d/w cardiology the echo and awaiting the of . Telemetry reviewed. Staph/Strep bacteria, consider MRSA , consider vascular inflammatory process. Plan to d/c tomorrow.
[2018-04-14] MEDS: SODIUM CHLORIDE 1,000 ML IV SCH ×2 (08:17→21:27)
[2018-04-14] MEDS: OXYCODONE PO PRN (08:29)
[2018-04-14] MEDS: AUGMENTIN 875-125 MG TAB PO SCH ×3 (08:30→21:26)
[2018-04-14] MEDS: ACTIGALL PO SCH ×2 (08:30→21:26)
[2018-04-14] MEDS: DOXYCYCLINE HYCLATE PO SCH ×3 (08:30→21:26)
[2018-04-14] MEDS: MILK THISTLE 500 MG PO SCH (09:17)
[2018-04-14] MEDS: ROCEPHIN 1 GM in SODIUM CHLORIDE 50 ML IV SCH (09:20)
[2018-04-14] MEDS: LOVENOX SUBCUT SCH (09:21)
[2018-04-14] MEDS: NYSTATIN CREAM TP SCH ×3 (09:21→21:32)
[2018-04-14] MEDS: LACTULOSE PO SCH (09:22)
--- NOTE | 2018-04-14 10:48 | US ---
EXAM: Ultrasound venous Doppler left lower extermity HISTORY: Lower extremity swelling COMPARISON: None TECHNIQUE: Venous duplex ultrasound of the left lower extremity was performed using color, wiggins-scal e, and Doppler flow imaging. FINDINGS: There is normal color flow and compression of the left common femoral, greater saphenous, profunda femoral, femoral, popliteal, peroneal, posterior tibial, and anterior tibial veins without e vidence of intraluminal thrombus. Left lower extremity subcutaneous edema. Nonspecific lymph node i n the left inguinal region, measuring 1.4 cm short axis, retains its normal fatty hilum. IMPRESSION: 1. No left lower extremity deep venous thrombosis. 2. Mildly prominent left inguinal lymph node, nonspecific.
[2018-04-14] MEDS ORDERED: DUONEB NEB PRN (11:22)
--- NOTE | 2018-04-14 12:30 | ECHO2D ---
Date of Exam: 04/13/18 Ordering Physician: DR. LINDSEY PIERCE Room #: 118 Reason for Echo: MURMUR, FEBRILE ILLNESS M-Mode Normal Adult Results LV Dimensions Normal Adult Results AoV Opening excursions >1.6 >1.6 LVEDD-base- 3.5-5.8 5.3 Ao root dimensions 2.0-3.7 3.4 LVESD-base- 3.1-4.6 L. Atrium dimensions 1.9-3.8 4.2 Post. Wall thickness 0.8-1.1 1.2 IV septum (thickness) 0.7-1.2 1.2 Post. Wall excursion 0.72-1.3 NORMAL Septal motion NORMAL Systolic motion R. Ventricular cavity 1.5-2.0 NORMAL LVEF 60% 60% Paradoxical septal wall motion NORMAL 2-D : 2-D M Mode Echocardiogram was performed using apical four chamber and left parasternal long and short axis views. Mitral, tricuspid and aortic valves appear to be normal. Contractility of the left ventricle seems to be normal, so is the cavity size. Enlarged Left atrial cavity Aortic roots appear to be normal. There is no pericardial effusion. There is no thrombus noted in the left ventricular or left aortic cavity. No mitral valve prolapse noted. M-MODE: MV: NORMAL AV: NORMAL TV: NORMAL PV: CHAMBER SIZE: ENLARGED LEFT ATRIAL CAVITY WALL MOTION: NORMAL PERICARDIUM: NORMAL INTERPRETATION: 1. BORDERLINE LEFT VENTRICULAR HYPERTROPHY WITH MILD LEFT ATRIAL CAVITY ENLARGEMENT 2. NORMAL VALVES 3. NORMAL LEFT VENTRICULAR CONTRACTILITY 4. NO EVIDENCE OF VEGETATION MTDD
[2018-04-15 05:15] VITALS: BP 123/64; TEMP 98.7
--- NOTE | 2018-04-15 07:31 | PCM.DC ---
Final Diagnosis: Erysipelas (Acute)/Cellulitis of left leg (Acute): Improving Fever (RESOLVED) Asthma (Acute): Mild exacerbation Gastroenteritis (Resolved) Heart murmur (Acute): Echo completed non valvular Thrombocytopenia (Chronic): Improved Cryptogenic cirrhosis of liver (Chronic): Obesity: BMI 34 HAMILTON (CHRONIC) (1) Erysipelas Status: Acute Code(s): A46 - ERYSIPELAS SNOMED Code(s): 31046851 (2) Cellulitis of left leg Status: Acute Code(s): L03.116 - CELLULITIS OF LEFT LOWER LIMB SNOMED Code(s ): 782808403 (3) Thrombocytopenia Status: Chronic Code(s): D69.6 - THROMBOCYTOPENIA, UNSPECIFIED SNOMED Code(s ): 069879483 (4) Gastroenteritis Status: Resolved Code(s): K52.9 - NONINFECTIVE GASTROENTERITIS AND COLITIS, UNSPECIFIED SNOMED Code(s): 34636207 (5) Heart murmur Status: Acute Code(s): R01.1 - CARDIAC MURMUR, UNSPECIFIED SNOMED Code(s): 95111053 (6) Asthma Status: Chronic Code(s): J45.909 - UNSPECIFIED ASTHMA, UNCOMPLICATED SNOMED Code(s): 585542465 (7) Cryptogenic cirrhosis of liver Status: Chronic Code(s): K74.69 - OTHER CIRRHOSIS OF LIVER SNOMED Code(s): 94005459 Reason for Hospitalization: Erysipelas LLE medial thigh and entire calf/Distal LE, febrile, Mild exacerbation of asthma. Prognosis at Discharge: Good: Cellulitis/erysipelas is withdrawing from skin pen marked edges. Pain is improving, he is ambulatory, showering. BM x 2 24 hours, Voiding x 7 in last 24 hours. He has gained about 15 pounds in hospital but he is not having any edema. He is eating/drinking better than he has in last 2 weeks per his report. No SOA, feels much better actually. He thinks he lost about 10 lb before hospital stay. Feels back to normal now. Condition at Discharge: Improving Medications at Discharge: Ambulatory Orders Medication Instructions Recorded Potassium Chloride 10 meq PO DAILY PRN 10/14/15 Oxycodone HCl 5 mg PO every 8 hours PRN PRN 09/12/16 Milk Thistle 500 mg PO DAILY 12/16/17 Alprazolam [Xanax] 0.5 mg PO BID PRN 04/12/18 Lactulose 20 gm PO DAILY PRN 04/12/18 Amoxicillin/Potassium Clav 1 tab PO Q12HR 7 Days #14 tablet 04/15/18 [Augmentin 875-125 mg Tab] Doxycycline Hyclate 100 mg PO Q12HR 7 Days #14 capsule 04/15/18 Lab/Diagnostics: Laboratory Last Values WBC 5.47 K/ul (4.2-10.2) 04/14/18 04:35 RBC 3.85 10^6/ul (4.70-6.10) L 04/14/18 04:35 Hgb 13.1 g/dl (14.0-18.0) L 04/14/18 04:35 Hct 37.3 % (42.0-52.0) L 04/14/18 04:35 MCV 96.9 fl (80.0-94.0) H 04/14/18 04:35 MCH 34.0 pg (27.0-31.0) H 04/14/18 04:35 MCHC 35.1 (31.8-35.4) 04/14/18 04:35 RDW Coeff of Joselin 14.1 % (11.6-14.8) 04/14/18 04:35 Plt Count 66 10^3/uL (140-440) L 04/14/18 04:35 Immature Gran % (Auto) 0.5 % (0.0-5.0) 04/14/18 04:35 Neut % (Auto) 71.3 04/14/18 04:35 Lymph % (Auto) 15.2 (10.0-50.0) 04/14/18 04:35 Barnes % (Auto) 9.1 (0-10) 04/14/18 04:35 Eos % (Auto) 3.7 % (0.0-7.0) 04/14/18 04:35 Baso % (Auto) 0.2 % (0.0-3.0) 04/14/18 04:35 Immature Gran # (Auto) 0.0 (0.0-1.0) 04/14/18 04:35 Neut # (Auto) 3.9 K/ul (2.0-6.9) 04/14/18 04:35 Lymph # (Auto) 0.8 K/uL (0.60-3.4) 04/14/18 04:35 Barnes # (Auto) 0.5 K/uL (0.4-2.0) 04/14/18 04:35 Eos # (Auto) 0.2 K/ul (0.0-0.7) 04/14/18 04:35 Baso # (Auto) 0.0 K/uL (0-0.2) 04/14/18 04:35 ESR 10 mm/hr (0-15) 04/12/18 13:00 PT 12.9 SEC (9.3-11.0) H 04/12/18 13:00 INR 1.30 SI (0.0-3.9) 04/12/18 13:00 APTT 32.3 SEC (23.9-40.0) 04/12/18 13:00 Sodium 139.3 mmol/L (134.5-145) 04/14/18 04:35 Potassium 3.77 mmol/L (3.5-5.1) 04/14/18 04:35 Chloride 105.1 mmol/L (98-107) 04/14/18 04:35 Carbon Dioxide 26.8 mmol/L (22-30.0) 04/14/18 04:35 Anion Gap 11.17 04/14/18 04:35 BUN 15.7 mg/dL (9-20) 04/14/18 04:35 Creatinine 0.84 mg/dL (0.60-1.10) 04/14/18 04:35 Estimated GFR (MDRD) 96.00 mL/min 04/14/18 04:35 BUN/Creatinine Ratio 18.69 04/14/18 04:35 Glucose 90.1 mg/dL (74-106) 04/14/18 04:35 Lactic Acid 1.49 mmol/L (0.7-2.1) 04/12/18 13:00 Calcium 8.26 mg/dL (8.4-10.2) L 04/14/18 04:35 Total Bilirubin 3.63 mg/dL (0.2-1.3) H D 04/14/18 04:35 AST 34.6 U/L (17-59) 04/14/18 04:35 ALT 21.9 U/L (0-50) 04/14/18 04:35 Alkaline Phosphatase 50.3 U/L (38-126) 04/14/18 04:35 Total Creatine Kinase 53.1 U/L (55-170) L 04/12/18 13:00 Troponin I < 0.012 ng/ml (0.0000-0.120) 04/12/18 13:00 C-Reactive Prot, Quant 73.4 mg/L (0.0-4.9) H 04/12/18 13:00 Total Protein 6.24 g/dL (6.3-8.2) L 04/14/18 04:35 Albumin 3.10 g/dL (3.5-5.0) L 04/14/18 04:35 Globulin 3.14 04/14/18 04:35 Albumin/Globulin Ratio 0.98 04/14/18 04:35 Procalcitonin 0.24 ng/mL (<0.05) 04/12/18 13:00 Urine Color Yellow (YELLOW) 04/12/18 13:50 Urine Clarity Clear (CLEAR) 04/12/18 13:50 Urine pH 6.0 (5-9) 04/12/18 13:50 Ur Specific [place] 1.015 (1.005-1.030) 04/12/18 13:50 Urine Protein Negative (NEGATIVE) 04/12/18 13:50 Urine Glucose (UA) Negative (NEGATIVE) 04/12/18 13:50 Urine Ketones Trace (NEGATIVE) 04/12/18 13:50 Urine Blood Negative (NEGATIVE) 04/12/18 13:50 Urine Nitrite Positive (NEGATIVE) 04/12/18 13:50 Urine Bilirubin 1+ (NEGATIVE) 04/12/18 13:50 Urine Urobilinogen 1.0 (0.2) 04/12/18 13:50 Ur Leukocyte Esterase Negative (NEGATIVE) 04/12/18 13:50 Urine Microscopic WBC 2-5 (0-2) 04/12/18 13:50 Ur Squamous Epith Cells 0-2 (0-5) 04/12/18 13:50 Urine Bacteria Trace (NOT PRESENT) 04/12/18 13:50 KIARA Screen Negative (Negative) 04/12/18 13:00 Influ A Molecular Assay Negative by naat (NEGATIVE) 04/12/18 16:20 Influ B Molecular Assay Negative by naat (NEGATIVE) 04/12/18 16:20 KIARA negative PENDING LABS C ANCA P-ANCA Antimyeloperoxidase. Echocardiogram: Mild increased LVH, atrial enlargement but normal preserved EF US LE: NEgative DVT> Chest X-ray: No acute pulmonary disease. No consolidation or effusion. CULTURE: Urine culture negative Blood culture x 2 negative Education Provided to Patient and Family: 1. Erysipelas/Cellulitis 2. Asthma education 3. Augmentin (Amoxicillin/Clavulanic Acid) 4. Doxycycline 5. Pain medication use. Opiate education. REHABILITATION SERVICES DIRECTOR checked LF 10/2017. Follow-ups: [address] Smith Disposition: HOME SELF-CARE Hospital Course: 53 yo CM hospital day #4 admitted with Erysipelas, fever, leg pain, history of HAMILTON and Cirrhosis, chronic thrombocytopenia, history of asthma w/ mild exacerbation and history of renal failure requiring dialysis historically but not on dialysis at present. Presented to ED 04/12/18 12:33 with fever/chills and left leg rash/pain, mild respiratory difficulty. The patient arrived in WC and provided own history. In ER temp 103 degrees, flu negative, strep negative , Pulse 91, RR20, BP 152/63, pulse ox 95%. Dr. Ruby called me at 16:14 and noted that patient had cellulitis, c/o pain in his leg and has chronic thrombocytopenia (50's since 2017). Labs in ER showed WBC 9.37, hgb 14, plt 55. CMP sodium 132.3, K+ 3.74, Cl 101.8, Co2 20.7, BUN 13.5, cr 0.83 and glucose 130.4. Procalcitonin was negative at 0.24. Lactic acid was normal at 1.49. UA trace ketones, SG 1.015, else reasonable. CK negative, troponin 1 negative. AST 37.7 and ALT 26.8. I checked PT/PTT/INR and PT was mildly elevated with INR 1.3. Rash present 4 days prior to admit started abruptly started nearly everywhere it was located at presentation, moderate severity, no known exposures. Nothing improved/worsened the rash. Similar episode of cellulitis historically tx w/ abx. No major SOA, mild wheezing, mild rhonchi, no diaphoresis, no chest pain, no N/V/D. Lacy rash along mid thigh and entire calf on left, photographs taken by Er. Sensation intact, motor intact, no neuro deficits. Patient was admitted to room 118-1, IV vancomycin 1G BID, Rocephin 1 G daily and PO clindamycin were ordered and he was put on fluids. He noted Gastroenteritis over preceding few days, before admit, now resolved but he thinks he lost ~7lb with not eating and it may have been closer to 10 lb. Edges of the lesion were marked with skin pen. Labs for vasculitis KIARA, ESR, CRP, C and P ANCA, antimyeloperoxidase ordered. Murmur on exam and Echo ordered. US of LE ordered as well. Plan IV/PO abx, monitor symptoms. He was febrile up to 103 degrees initially, this improved throughout the hospital stay and he was no longer febrile by 04/13/18. CRP was markedly elevated, ESR negative. KIARA negative. ANCA testing was pending. Echo normal EF, normal valves, mild LVH. US of LE no clot but he did have a small inguinal LN on left that was not palpable on exam. We continue IV abx until 04/14/18 and he was changed to PO Augmentin and PO Doxycycline BID. Continued to do well throughout the night. Am of d/c vitals were normal stable, afebrile. Weight up to 252 lb and was listed at 240 at admit. He is not edematous, SOA improved with nebs. No steroids were used. Again, no fever since 04/13/18, he has been ambulating around hospital 24 hours, he has had reduced pain, which was controlled with oxycodone 5mg. I will provide Rx for augmentin 875/125 BID, Doxy 100 BID ( aware of potential interactions with doxy/augmentin) and avoid clinda to reduce c.diff per literature. Nebs to continue at home. Skin pen marking still visible and he has had a good constriction of erythema. Calf is still involved. RIGOBERTO hosing may help. He should elevate leg as able. Heat to touch has diminished, thigh medially is fading prominently. He has no further pain in the left knee, just now some pressure in the calf. He was very happy with care while here, noting pain was controlled, breathing was controlled. BM x2 within 24 hours of d/c, voids x 4 within 24 hours of d/ c. He has had good vitals (BP/HR/pulse/afebrile) and has done well on telemetry. Overall we have maximized his potential through hospitalization and he should do well at home with the continued recovery. The patient did not meet simple cellulitis criteria at admit, he exceeded this and met erysipelas criteria which meets inpatient criteria and requires IV abx. He has improved, cultures of blood x 2 negative, urine x 1 negative, nothing to culture of wound , nothing to drain of wound. I will be treating for staph/strep. If any worsening will consider addition of linezolid. He noted understanding and will make appt with me in next 1 week to re-evaluate the wound. Patient to be discharged 04/15/18. Day of D/C Exam: Vital Signs - 24 hr 04/14/18 04/14/18 04/15/18 14:00 22:00 05:14 Temperature 98.6 F 98.2 F 98.7 F Pulse Rate 63 60 63 Respiratory 20 20 20 Rate Blood Pressure 112/60 116/59 L 123/64 O2 Sat by Pulse 95 98 97 Oximetry Constitutional: Appearance-No acute distress, sitting in Bedside chair on entry Orientation- Oriented x 3, alert Gait-Normal pace, normal arm movement. Shower daily last 48 hoursBuild and Nutrition-Obese General- Patient is pleasant and cooperative with the interview and exam. Feeling much better. Integumentary: Capillary refill is normal bilateral Upper and lower extremity. RASH: Cellulitis/erysipelas LLE involving most of tissue below left hip/ inguinal ligament. Color is less red along medial thigh, now slightly hyperpigmented/violaceous and this continues to improve. Calf is still erythematous prominently but contained within pen markings and constricting within the markings/improving. Still edema about the ankle. Recommended to elevate leg. RICE therapy d/w patient. The patient still has erythematous, edematous tissues about the herman anterior/posterior/medial calf. Erythema continues to constrict within pen markings. Remains spared along lateral thigh and entire foot. ENMT: Nose and sinus- No sinus tenderness along frontal/maxillary region. External appearance normal and midline. Nares- bilateral quiet airflow, no discharge. Nasal mucosa- No bleeding noted and no ulcerations observed. Wesley, moist. Turbinates non boggy. Lips- normal color, moist without cracks/lesions Oral Cavity/Palate- hard/soft palate intact without lesions, oral mucosa pink and moist. Oropharynx- no pharyngeal erythema, Uvula midline. No post nasal drip. No exudate. Salivary glands- Non tender to palpation CHEST/LUNG: Auscultation- Breath sounds much more clear today. Coarse sounds throughout all lung ferrell, tracheal sounds, bronchial sounds overlying sternum , Bronchovessicular sounds between scapulae posteriorly, vessicular breath sounds heard throughout periphery. Lungs are much more clear today. Good aeration. Talks in full sentences. Adventitious sounds- Much less adventitious sounds heard today. He still has scattered wheezes, rhonchi but no rales. adventitious sounds are more rare now. Stable/improving pulmonary sounds. CARDIOVASCULAR: Palpation/Percussion- Normal PMI, no palpable thrill Auscultation- Regular rate and rhythm. III/ systolic murmur noted in sitting and supine positions. Did not radiate into axilla or carotid. Extremities- no digital clubbing, cyanosis, edema, increased warmth. ABDOMEN: Inspection- normal and no visible pulsations. Normal contour. Auscultation- Bowel sounds normal, no abdominal bruits. Palpation/Percussion- soft, non-tender, no rebound tenderness, no rigidity (guarding), no jar tenderness, no masses. Liver-hepatomegaly, Peripheral Vascular: DP and PT pulses 2+ bilaterally. Cap refill normal bilateral feet. Musculoskeletal: Lower extremity- Hip: Not tender to palpation, no pain, no swelling, edema or erythema of surrounding tissue, normal strength and tone. Normal appearing hip ROM bilaterally without pain. Knee: Knee ROM normal. No tenderness overlying trochanters, Previous medial knee pain resolved. Thigh pain resolved. More violaceous and less erythematous. He has no pain in quad tendon, patellar tendon regions. No tenderness at tibial tuberosity. Ankle: Left he has erythema of entire calf that is improving daily. Edema surrounding maleollus medial/laterally unchanged. He has skin pen marking from his mid thigh just below testicle down to the ankle medially and surrounding calf. I marked margins in ER improved steadily daily. Tender to palpation, improving, less hot to touch, erythematous, clear demarcation between healthy and inflamed tissues, mildly raised. E/O Erysipelas is present with systemic findings of fever/chills. Systemic findings are gone. This is improving/constricting. Neurological: General- Moves all 4 extremities symmetrically. Symmetrical face and body posture. Neuropsych: Oriented- Person, place, time. (AAOx3), Mood/affect- normal and congruent. Able to articulate well. Speech-Normal speech, normal rate, normal tone, normal use of language, volume and coherence. Thought content- normal with ability to perform basic computations and apply abstract thought/reason. Associations- intact, no SI/HI, no hallucinations, delusions, obsessions. Judgment/insight- Appropriate. Memory-Recall intact, remote and recent memory intact. Knowledge- Age appropriate fund of knowledge, concentration and attention span normal. Lymphatic: Femoral and Inguinal- No appreciable femoral/inguinal LN> Plan: 1. Please call your Family Physician as soon as possible to schedule a follow- up appointment. 2. Take antibiotics until complete 3. If return of fever, if spreading of redness if changes in symptoms please call clinic so that I can see you STEVO. 4. Pain meds to resume home dosing 5. Resume home meds. 6. Activity ad dez 7. Diet: Regular 8. Use opiate as indicated: REHABILITATION SERVICES DIRECTOR checked LF 10/2017. Today we spent >30 minutes preparing the discharge. Education on meds, medical problem, re-eval on day of d/c. Hospital potential maximized and he is ready for d/c.
[2018-04-15] MEDS: AUGMENTIN 875-125 MG TAB PO SCH (09:22)
[2018-04-15] MEDS: ACTIGALL PO SCH (09:23)
[2018-04-15] MEDS: DOXYCYCLINE HYCLATE PO SCH (09:23)
[2018-04-15] MEDS: LOVENOX SUBCUT SCH (09:24)
[2018-04-15] MEDS: LACTULOSE PO SCH (09:24)
[2018-04-15] MEDS: MILK THISTLE 500 MG PO SCH (09:25)
[2018-04-15] MEDS: NYSTATIN CREAM TP SCH (09:26)
[2018-04-15] MEDS: ROCEPHIN 1 GM in SODIUM CHLORIDE 50 ML IV SCH (09:26)
[2018-04-15] MEDS: OXYCODONE PO PRN (09:30)
== END 2018-04-15 12:15 | disposition home or self-care (01) | DRG 864 ==
LOC: ED 12:27 → MEDSURG B 16:18
PROVIDERS: ADMIT Family Medicine; ATTEND Family Medicine
DX: R50.9 Fever, unspecified (principal); A46 Erysipelas; D69.6 Thrombocytopenia, unspecified; K52.9 Noninfective gastroenteritis and colitis, unspecified; K74.69 Other cirrhosis of liver; J45.909 Unspecified asthma, uncomplicated; R21 Rash and other nonspecific skin eruption; R53.81 Other malaise; R63.0 Anorexia; R01.1 Cardiac murmur, unspecified; F17.210 Nicotine dependence, cigarettes, uncomplicated; Z68.34 Body mass index [BMI] 34.0-34.9, adult; Z72.0 Tobacco use
CPT/HCPCS: 36415; 80053; 81001; 82550; 83520; 83605; 84145; 84484; 85025; 85610; 85651; 85730; 86038; 86140; 86256; 87040; 87086; 87502; 87651; 93005; 93010; 94640; 99223; 99233; 99239; 99284

== ENCOUNTER 2018-04-22 09:28 | Outpatient (CLI) | END 2018-04-22 09:29 | disposition home or self-care (01) | LOC: RHC-LAB 09:28 → LAB 09:29 | PROVIDERS: ATTEND Family Medicine | DX: E53.8 Deficiency of other specified B group vitamins (principal); D50.0 Iron deficiency anemia secondary to blood loss (chronic) | CPT/HCPCS: 36415; 82607; 82728; 83540; 83550 ==

== ENCOUNTER 2018-07-21 14:43 | Outpatient (CLI) | END 2018-07-21 14:44 | disposition home or self-care (01) | LOC: RHC-LAB 14:43 → FCC-LAB 14:44 | PROVIDERS: ATTEND Family Medicine | DX: I10 Essential (primary) hypertension (principal); G93.40 Encephalopathy, unspecified; R60.9 Edema, unspecified; K74.69 Other cirrhosis of liver | CPT/HCPCS: 36415; 80053; 85025; 85610; 85651; 85730 ==

== ENCOUNTER 2018-07-24 14:33 | Outpatient (CLI) | END 2018-07-24 14:34 | disposition home or self-care (01) | LOC: LAB 14:33 | PROVIDERS: ATTEND Family Medicine | DX: K74.69 Other cirrhosis of liver (principal) | CPT/HCPCS: 36415; 82140 ==

== ENCOUNTER 2018-08-12 09:33 | Outpatient (CLI) ==
--- NOTE | 2018-08-12 10:38 | US ---
EXAM: Complete ultrasound abdomen HISTORY: Cirrhosis, fatty liver COMPARISON: CT 11/01/2017 TECHNIQUE: Complete ultrasound abdomen was performed FINDINGS: Visualized portion aorta and inferior vena cava appear normal. Pancreas obscured secondar y bowel gas shadowing. Liver coarsened in echogenicity and nodular in contour, consistent with cirrh otic configuration. Main portal vein patent with normal direction of flow. Gallstones, noting evalu ation there are gallstones. No gallbladder wall thickening. No pericholecystic fluid. No biliary d uct dilation with common bile duct measuring 0.5 cm. Right kidney measures 11.2 cm in length. Left kidney measures 12.0 cm in length. No hydronephrosis. Spleen normal in size and echogenicity measur ing 10.3 cm in length. Bladder minimally distended and poorly evaluated. IMPRESSION: 1. Cirrhosis. 2. Cholelithiasis. No gallbladder wall thickening.
== END 2018-08-12 09:34 | disposition home or self-care (01) ==
LOC: RAD 09:33
PROVIDERS: ATTEND Physician Assistant
DX: K74.60 Unspecified cirrhosis of liver (principal); K76.0 Fatty (change of) liver, not elsewhere classified; E80.4 Gilbert syndrome